=== PATIENT | female | born 1995 | race Caucasian/White ===

== ENCOUNTER 2017-03-16 11:23 | Emergency (ER) | payer MEDICAID ==
[2017-03-16 11:43] VITALS: BP 121/66
--- NOTE | 2017-03-16 12:23 | EDM.PDOC ---
ED HPI GENERAL MEDICAL PROBLEM - General Chief Complaint: Back Pain or Injury Stated Complaint: BACK PAIN/13 WEEKS Time Seen by Provider: 03/16/17 11:44 Source of Information: Reports: Patient History Limitations: Reports: No Limitations - History of Present Illness INITIAL COMMENTS - FREE TEXT/NARRATIVE: Patient presents with complaints of low back pain after bending over at the waist. 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 History: at 13wks edc sep 19 - Past Surgical History HEENT Surgical History: Reports: Eye Surgery Social & Family History - Tobacco Use Smoking Status *Q: Current Every Day Smoker Years of Tobacco use: 4 Packs/Tins Daily: 0.2 ED ROS GENERAL - Review of Systems Review Of Systems: See Below Constitutional: Denies: Fever, Chills HEENT: Reports: No Symptoms Respiratory: Denies: Shortness of Breath, Wheezing, Cough Cardiovascular: Denies: Chest Pain, Dyspnea on Exertion, Edema, Lightheadedness , Palpitations, PND, Syncope Endocrine: Reports: No Symptoms GI/Abdominal: Denies: Abdominal Pain, Black Stool, Bloody Stool, Constipation, Diarrhea, Hematemesis, Hematochezia, Mucous in Stool, Nausea, Vomiting : Denies: Discharge, Dysuria, Flank Pain, Incontinence, Pain, Urgency Musculoskeletal: Reports: Muscle Pain, Other (Low back pain) Skin: Denies: Cyanosis, Bruising, Rash, Erythema, Lesions Neurological: Denies: Headache, Numbness, Syncope, Tingling, Difficulty Walking , Weakness, Gait Disturbance Psychiatric: Reports: No Symptoms ED EXAM,LOWER BACK PAIN/INJURY - Physical Exam Exam: See Below Exam Limited By: No Limitations General Appearance: Alert, WD/WN, No Apparent Distress Eye Exam: Bilateral Eye: Normal Inspection, PERRL Ears: Normal External Exam, Normal Canal, Hearing Grossly Normal, Normal TMs Nose: Normal Inspection, Normal Mucosa Throat/Mouth: Normal Inspection, Normal Lips, Normal Teeth, Normal Gums, Normal Oropharynx, Normal Voice, No Airway Compromise Head: Atraumatic, Normocephalic Neck: Normal Inspection, Supple, Non-Tender, Full Range of Motion Respiratory/Chest: No Respiratory Distress, Lungs Clear, Normal Breath Sounds, No Accessory Muscle Use, Chest Non-Tender Cardiovascular: Normal Peripheral Pulses, Regular Rate, Rhythm, No Edema, No Gallop, No Murmur, No Rub GI/Abdominal: Normal Bowel Sounds, Soft, Non-Tender, No Organomegaly, No Abnormal Bruit, Other (13 weeks ) Back Exam: Normal Inspection, Full Range of Motion, Muscle Spasm, Other ( Negative leg raise bilateral legs, no radiculopathy noted. ). No: CVA Tenderness (R), CVA Tenderness (L), Decreased Range of Motion, Paraspinal Tenderness, Vertebral Tenderness Extremities: Normal Inspection, Normal Range of Motion, Non-Tender, No Pedal Edema, Normal Capillary Refill Neurological: Alert, Normal Mood/Affect, Normal Dorsiflexion, CN II-XII Intact, Normal Plantar Flexion, Normal Gait, No Motor/Sensory Deficits, Oriented x 3 Psychiatric: Normal Affect, Normal Mood Skin Exam: Warm, Dry, Intact, Normal Color, No Rash Lymphatic: No Adenopathy Course - Vital Signs Last Recorded V/S: Last Vital Signs Temp 36.1 C 03/16/17 11:41 Pulse 76 03/16/17 11:41 Resp 14 03/16/17 11:41 BP 121/66 03/16/17 11:41 Pulse Ox 96 03/16/17 11:41 Departure - Departure Time of Disposition: 12:23 Disposition: Home, Self-Care 01 Condition: good Clinical Impression: Low back strain - Discharge Information Instructions: Back Pain, Adult, [id number], Muscle Strain, [id number] Referrals: PCP,None [Primary Care Provider] - Forms: ED Department Discharge Additional Instructions: You have a low back muscle strain. When bending over, bend at the knees and use your legs for support. You may use hot packs and Ice packs as directed for pain. Use of lidocaine patch can also assist with your pain, use as directed. You can take acetaminophen for pain as directed. Use of chiropractor or massage may also help your discomfort. Follow up with your OB as scheduled in a few weeks. If you discomfort becomes worse, follow up. - Assessment/Plan Assessment:: Low back strain Plan: Monitor and manage pain. Patient provided education on proper body mechanics, use of hot packs and Ice packs, lidocaine patch and acetaminophen for pain as directed. Use of chiropractor or massage may also help her discomfort. Follow up with your OB as scheduled in a few weeks.
== END 2017-03-16 12:33 | disposition home or self-care (01) ==
LOC: JP.ED 11:23
DX: O9A.211 Injury, poisoning and certain other consequences of external causes complicating pregnancy, first trimester (principal); S39.012A Strain of muscle, fascia and tendon of lower back, initial encounter; O99.331 Smoking (tobacco) complicating pregnancy, first trimester; F17.210 Nicotine dependence, cigarettes, uncomplicated; Z3A.13 13 weeks gestation of pregnancy; Z98.890 Other specified postprocedural states; X58.XXXA Exposure to other specified factors, initial encounter
CPT/HCPCS: 99283

== ENCOUNTER 2017-09-26 07:16 | Inpatient (IN) | payer MEDICAID ==
[2017-09-26] MEDS ORDERED: Misoprostol 50 MCG (1/2 of 100 MCG) Tab VAG ONE ×2 (08:20→12:40)
[2017-09-26] MEDS ORDERED: Misoprostol 50 MCG (1/2 of 100 MCG) Tab ONE (08:26)
[2017-09-26] MEDS ORDERED: Sodium Chloride 0.9% 10 ML Syringe FLUSH PRN (08:33)
[2017-09-26] MEDS ORDERED: Ondansetron 4 MG Tab.DIS PO PRN (08:36)
--- NOTE | 2017-09-26 08:45 | PCM.LDHP ---
L&D History of Present Illness - General Date of Service: 09/26/17 (induction post dates) Admit Problem/Dx: Patient Status Order with Admit Dx/Problem 09/26/17 08:33 Patient Status [ADT] Routine Admission Diagnosis/Problem Admission Diagnosis/Problem Source of Information: Patient History Limitations: Reports: No Limitations - History of Present Illness Introduction:: This 21 year old who is 41 weeks gestation presents for induction of labor. CHELSEY was 09/19/17 based on early US. Adequate care. No problems during . Has been teo for the past several days at home. 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 LMP (Approximate): (CHELSEY 09/19/17) Other OB/BYN History: at 13wks edc sep 19 - Past Surgical History HEENT Surgical History: Reports: Eye Surgery Social & Family History - Family History Family Medical History: Noncontributory - Tobacco Use Smoking Status *Q: Current Every Day Smoker Years of Tobacco use: 6 Packs/Tins Daily: 0.3 Used Tobacco, but Quit: No Second Hand Smoke Exposure: No - Caffeine Use Caffeine Use: Reports: Coffee, Soda Other Caffeine Use: occational - Recreational Drug Use Recreational Drug Use: Yes Drug Use in Last 12 Months: Yes Recreational Drug Type: Reports: Marijuana/Hashish Recreational Drug Use Frequency: Daily H&P Review of Systems - Review of Systems: Review Of Systems: See Below General: Reports: No Symptoms HEENT: Reports: No Symptoms Pulmonary: Reports: No Symptoms Cardiovascular: Reports: No Symptoms Gastrointestinal: Reports: No Symptoms Genitourinary: Reports: No Symptoms Musculoskeletal: Reports: No Symptoms Skin: Reports: No Symptoms Psychiatric: Reports: No Symptoms Neurological: Reports: No Symptoms Hematologic/Lymphatic: Reports: No Symptoms Immunologic: Reports: No Symptoms L&D Exam - Exam Exam: See Below - Vital Signs Weight: 209 lb - OB Specific Contraction Intensity: Mild Movement: Active Heart Tones: Present Heart Tones per Min: 145 Heart Rate (FHR) Variability: Moderate (6-25 bmp) Presentation: Vertex Estimated Weight: 8-9 pounds - Hung Score Hung Score Cervix Position: Anterior Hung Score Consistency: Soft Hung Score Effacement: 51-70% Hung Score Dilation: 1-2 cm Hung Score Infant's Station: -1 ,0 Hung Score Total: 9 - Exam General: Alert, Oriented HEENT: PERRLA, Conjunctiva Clear, EACs Clear, EOMI, Hearing Intact, Mucosa Moist & [place], Nares Patent, Normal Nasal Septum, Posterior Pharynx Clear, TMs Clear Neck: Supple, Trachea Midline Lungs: Clear to Auscultation, Normal Respiratory Effort Cardiovascular: Regular Rate, Regular Rhythm GI/Abdominal Exam: Normal Bowel Sounds, Soft, Non-Tender, No Organomegaly, No Distention, No Abnormal Bruit, No Mass, Pelvis Stable Rectal Exam: Normal Exam, Normal Rectal Tone Genitourinary: Normal external exam, Normal bimanual exam, Normal speculum exam Back Exam: Normal Inspection, Full Range of Motion Extremities: Normal Inspection, Normal Range of Motion, Non-Tender, No Pedal Edema, Normal Capillary Refill Skin: Warm, Dry, Intact Neurological: Cranial Nerves Intact, Reflexes Equal Bilateral Psychiatric: Alert, Normal Affect, Normal Mood - Patient Data Lab Results Last 24 hrs: Laboratory Results - last 24 hr 09/26/17 09/26/17 Range/Units 08:03 08:05 Urine Color Yellow Urine Appearance Cloudy Urine pH 7.0 (4.5-8.0) Ur Specific [place] 1.015 (1.008-1.030) Urine Protein Negative (NEGATIVE) mg/dL Urine Glucose (UA) 250 H (NEGATIVE) mg/dL Urine Ketones Negative (NEGATIVE) mg/dL Urine Occult Blood Negative (NEGATIVE) Urine Nitrite Negative (NEGATIVE) Urine Bilirubin Negative (NEGATIVE) Urine Urobilinogen Normal (NORMAL) mg/dL Ur Leukocyte Esterase Negative (NEGATIVE) Urine RBC Not seen (0-5) Urine WBC Not seen (0-5) Ur Epithelial Cells Moderate Amorphous Sediment Many Urine Bacteria Moderate Urine Mucus Not seen Urine Opiates Screen Negative (NEGATIVE) Ur Oxycodone Screen Negative (NEGATIVE) Urine Methadone Screen Negative (NEGATIVE) Ur Propoxyphene Screen Negative (NEGATIVE) Ur Barbiturates Screen Negative (NEGATIVE) Ur Tricyclics Screen Negative (NEGATIVE) Ur Phencyclidine Scrn Negative (NEGATIVE) Ur Amphetamine Screen Negative (NEGATIVE) U Methamphetamines Scrn Negative (NEGATIVE) Urine MDMA Screen Negative (NEGATIVE) U Benzodiazepines Scrn Negative (NEGATIVE) U Cocaine Metab Screen Negative (NEGATIVE) U Marijuana (THC) Screen Negative (NEGATIVE) - Problem List (1) Post-dates SNOMED Code(s): 44913218 ICD Code: O48.0 - POST-TERM Status: Acute Current Visit: Yes (2) Elective induction of labor planned SNOMED Code(s): 772748586 ICD Code: OYC5221 - Status: Acute Current Visit: Yes Problem List Initiated/Reviewed/Updated: Yes Orders Last 24hrs: Active Orders 24 hr Category Date Time Status Patient Status [ADT] Routine ADT 09/26/17 08:33 Ordered Antiembolic Devices [RC] .Routine Care 09/26/17 08:38 Ordered Communication Order [RC] ASDIRECTED Care 09/26/17 08:33 Ordered Communication Order [RC] ASDIRECTED Care 09/26/17 08:36 Ordered Heart Tones [RC] PER UNIT ROUTINE Care 09/26/17 08:33 Ordered May Shower [RC] ASDIRECTED Care 09/26/17 08:33 Ordered Notify Provider Vital Signs [RC] PRN Care 09/26/17 08:33 Ordered Notify Provider [RC] PRN Care 09/26/17 08:33 Ordered Up ad Keysha [RC] ASDIRECTED Care 09/26/17 08:33 Ordered VTE/DVT Education [RC] Click to Edit Care 09/26/17 08:38 Ordered Vital Signs [RC] PER UNIT ROUTINE Care 09/26/17 08:33 Ordered Regular Diet [DIET] Diet 09/26/17 Lunch Ordered CBC WITH AUTO DIFF [HEME] Routine Lab 09/26/17 08:03 Ordered Acetaminophen [Tylenol] Med 09/26/17 08:36 Ordered 650 mg PO Q4H PRN Ondansetron [Zofran ODT] Med 09/26/17 08:36 Ordered 4 mg PO Q4H PRN Oxytocin/Normal Saline [Pitocin in NS 20 Units/1,000 ML Med 09/26/17 08:45 Ordered ] 1,000 ml IV TITRATE Penicillin G Potassium [Pfizerpen] 2.5 millunits Med 09/26/17 08:45 Ordered Sodium Chloride 0.9% [Normal Saline] 50 ml IV Q4H Penicillin G Potassium [Pfizerpen] 5 millunits Med 09/26/17 08:39 Ordered Sodium Chloride 0.9% [Normal Saline] 100 ml IV ONETIME Sodium Chloride 0.9% [Saline Flush] Med 09/26/17 08:33 Ordered 10 ml FLUSH ASDIRECTED PRN fentaNYL [Sublimaze] Med 09/26/17 08:36 Ordered 100 mcg IVPUSH Q1H PRN DVT/VTE Prophylaxis Reflex [OM.PC] Routine Oth 09/26/17 08:36 Ordered Saline Lock Insert [OM.PC] Routine Oth 09/26/17 08:33 Ordered Resuscitation Status Routine Resus Stat 09/26/17 08:33 Ordered Medication Orders Acetaminophen (Tylenol) 650 mg PO Q4H PRN PRN Reason: Pain (Mild 1-3) and fever Fentanyl (Sublimaze) 100 mcg IVPUSH Q1H PRN PRN Reason: Pain (moderate 4-6) Oxytocin/Sodium Chloride (Pitocin In Ns 20 Units/1,000 Ml) 1,000 mls @ 6 mls/ hr IV TITRATE MAICOL; 2 MUNITS/MIN PRN Reason: Protocol Penicillin G Potassium 5 (millunits/ Sodium Chloride) 100 mls @ 200 mls/hr IV ONETIME ONE Stop: 09/26/17 09:08 Penicillin G Potassium 2.5 (millunits/ Sodium Chloride) 50 mls @ 100 mls/hr IV Q4H MAICOL Ondansetron HCl (Zofran Odt) 4 mg PO Q4H PRN PRN Reason: Nausea/Vomiting Sodium Chloride (Saline Flush) 10 ml FLUSH ASDIRECTED PRN PRN Reason: Keep Vein Open Assessment/Plan Comment:: 21 year old 41 weeks gestation, post dates here for induction of labor. Hung score 9, CE 2/75/0 anterior Positive GBS Plan: Misoprostol 50 mcg this morning, may repeat at noon Monitor for active labor GBS protocol started Plan for vaginal delivery later today.
[2017-09-26] MEDS ORDERED: Penicillin G Potassium 5 MILLUNITS in Sodium Chloride 0.9% 100 ML IV ONE (09:00)
[2017-09-26] MEDS ORDERED: Misoprostol 25 MCG (1/4 of 100 MCG) Tab ONE (12:28)
--- NOTE | 2017-09-26 12:36 | PCM.PNLD ---
Labor Progress Note - VS & Meds Vital Signs: Last Vital Signs Temp 97.4 F 09/26/17 08:00 Pulse 120 H 09/26/17 08:00 Resp 18 09/26/17 08:00 BP 119/81 09/26/17 08:00 Pulse Ox 95 09/26/17 08:00 Active Medications: Current Medications Acetaminophen (Tylenol) 650 mg PO Q4H PRN PRN Reason: Pain (Mild 1-3) and fever Fentanyl (Sublimaze) 100 mcg IVPUSH Q1H PRN PRN Reason: Pain (moderate 4-6) Oxytocin/Sodium Chloride (Pitocin In Ns 20 Units/1,000 Ml) 20 unit in 1,000 mls @ 6 mls/hr IV TITRATE MAICOL; 2 MUNITS/MIN PRN Reason: Protocol Penicillin G Potassium 2.5 (millunits/ Sodium Chloride) 50 mls @ 100 mls/hr IV Q4H MAICOL Misoprostol (Cytotec) 25 mcg VAG ONETIME ONE Stop: 09/26/17 12:32 Ondansetron HCl (Zofran Odt) 4 mg PO Q4H PRN PRN Reason: Nausea/Vomiting Sodium Chloride (Saline Flush) 10 ml FLUSH ASDIRECTED PRN PRN Reason: Keep Vein Open Discontinued Medications Penicillin G Potassium 5 (millunits/ Sodium Chloride) 100 mls @ 200 mls/hr IV ONETIME ONE Stop: 09/26/17 09:29 Last Admin: 09/26/17 09:14 Dose: 200 mls/hr Misoprostol (Cytotec) Confirm Administered Dose 50 mcg .ROUTE .STK-MED ONE Stop: 09/26/17 08:27 Last Admin: 09/26/17 09:14 Dose: Not Given Misoprostol (Cytotec) 50 mcg VAG ONETIME ONE Stop: 09/26/17 08:21 Last Admin: 09/26/17 08:23 Dose: 50 mcg Misoprostol (Cytotec) Confirm Administered Dose 25 mcg .ROUTE .STK-MED ONE Stop: 09/26/17 12:29 - Uterine Contractions Uterine Monitoring Mode: External [place] Contraction Frequency (min): 1.5-5 Contraction Duration (sec): 50-60 Contraction Intensity: Mild Uterine Resting Tone: Soft - Monitoring Monitor Mode: Doppler/Auscultation Heart Rate (FHR) Baseline: 137 Heart Rate (FHR) Variability: Moderate (6-25 bmp) Accelerations: Present, 15x15 Decelerations: None Strip Review: Category I - Vaginal Exam Dilation (cm): 2 Effacement (Percent): 90 Station: 0 Cervical Position: Anterior Sterile Vaginal Exam Performed By: Shanna Warren Vaginal Exam Comment: cervical change from this morning, - Labor Progress (Free Text) Labor Progress: 09/26/17 Placed second dose of Misoprostol 25 mcg at 1230. Tacho regularly now and becoming uncomfortable Monitor for active labor will reassess at 1530, May AROM if not ruptured on her own. Planning for vaginal delivery Cat 1 strip
[2017-09-26] MEDS: Penicillin G Potassium 2.5 MILLUNITS in Sodium Chloride 0.9% 50 ML IV SCH ×3 (13:13→21:55)
[2017-09-26] MEDS: fentaNYL 100 MCG/2 ML SDV IVPUSH PRN ×2 (15:06→16:53)
[2017-09-26] MEDS ORDERED: Sodium Chloride 0.9% 1,000 ML IV ONE (16:10)
[2017-09-26] MEDS ORDERED: ePHEDrine 50 MG/ML SDV IVPUSH ONE (16:15)
[2017-09-26] MEDS ORDERED: ePHEDrine 50 MG/ML SDV ONE (16:18)
[2017-09-26] MEDS ORDERED: Ropivacaine 100 ML ONE (18:12)
--- NOTE | 2017-09-26 18:17 | PCM.PNLD ---
Labor Progress Note - VS & Meds Vital Signs: Last Vital Signs Temp 97.4 F 09/26/17 11:00 Pulse 97 09/26/17 11:00 Resp 18 09/26/17 11:00 BP 116/67 09/26/17 11:00 Pulse Ox 95 09/26/17 11:00 Active Medications: Current Medications Acetaminophen (Tylenol) 650 mg PO Q4H PRN PRN Reason: Pain (Mild 1-3) and fever Fentanyl (Sublimaze) 100 mcg IVPUSH Q1H PRN PRN Reason: Pain (moderate 4-6) Last Admin: 09/26/17 16:53 Dose: 100 mcg Oxytocin/Sodium Chloride (Pitocin In Ns 20 Units/1,000 Ml) 20 unit in 1,000 mls @ 6 mls/hr IV TITRATE MAICOL; 2 MUNITS/MIN PRN Reason: Protocol Penicillin G Potassium 2.5 (millunits/ Sodium Chloride) 50 mls @ 100 mls/hr IV Q4H MAICOL Last Admin: 09/26/17 16:57 Dose: 100 mls/hr Ondansetron HCl (Zofran Odt) 4 mg PO Q4H PRN PRN Reason: Nausea/Vomiting Sodium Chloride (Saline Flush) 10 ml FLUSH ASDIRECTED PRN PRN Reason: Keep Vein Open Discontinued Medications Ephedrine Sulfate (Ephedrine Sulfate) 5 - 10 mg IVPUSH ONETIME ONE Stop: 09/26/17 16:16 Ephedrine Sulfate (Ephedrine Sulfate) Confirm Administered Dose 50 mg .ROUTE .STK-MED ONE Stop: 09/26/17 16:19 Penicillin G Potassium 5 (millunits/ Sodium Chloride) 100 mls @ 200 mls/hr IV ONETIME ONE Stop: 09/26/17 09:29 Last Admin: 09/26/17 09:14 Dose: 200 mls/hr Misoprostol (Cytotec) Confirm Administered Dose 50 mcg .ROUTE .STK-MED ONE Stop: 09/26/17 08:27 Last Admin: 09/26/17 09:14 Dose: Not Given Misoprostol (Cytotec) 50 mcg VAG ONETIME ONE Stop: 09/26/17 08:21 Last Admin: 09/26/17 08:23 Dose: 50 mcg Misoprostol (Cytotec) Confirm Administered Dose 25 mcg .ROUTE .STK-MED ONE Stop: 09/26/17 12:29 Last Admin: 09/26/17 12:33 Dose: Not Given Misoprostol (Cytotec) 25 mcg VAG ONETIME ONE Stop: 09/26/17 12:41 Last Admin: 09/26/17 12:34 Dose: 25 mcg - Uterine Contractions Uterine Monitoring Mode: External [place] Contraction Frequency (min): 1-3 Contraction Duration (sec): 30-100 Contraction Intensity: Strong Uterine Resting Tone: Soft - Monitoring Monitor Mode: Doppler/Auscultation Heart Rate (FHR) Baseline: 137 Heart Rate (FHR) Variability: Moderate (6-25 bmp) Accelerations: Present, 15x15 Decelerations: None Strip Review: Category I - Vaginal Exam Dilation (cm): 3-4 Effacement (Percent): 100 Station: 0 Cervical Position: Anterior Sterile Vaginal Exam Performed By: Shanna Warren Vaginal Exam Comment: SROM 1609, clear - Labor Progress (Free Text) Labor Progress: severe back labor, requested epidural. There was a significant delay in getting anesthesia.Now is comfortable Plan for vaginal delivery this evening
[2017-09-26] MEDS ORDERED: Lidocaine 1% 50 ML MDV ONE (21:45)
[2017-09-26] MEDS: Ibuprofen 600 MG Tab PO PRN (22:35)
[2017-09-26] MEDS ORDERED: Sennosides 8.6 MG Tab PO PRN (22:54)
[2017-09-26] MEDS ORDERED: Benzocaine 20% Top Spray 56 GM Bottle TOP PRN (22:54)
[2017-09-26] MEDS ORDERED: Lanolin 100% Cream 40 GM Tube TOP PRN (22:54)
[2017-09-26] MEDS ORDERED: Witch Hazel Medicated Pads 100/Jar TOP PRN (22:54)
--- NOTE | 2017-09-26 23:24 | PCM.DEL ---
L & D Note - General Info Date of Service: 09/26/17 (Delivery) Mother's Due Date: 09/19/17 - Delivery Note Labor: Spontaneous Cervical Ripening Method: Misoprostil Delivery Outcome: Livebirth Infant Delivery Method: Spontaneous Vaginal Delivery-Single Delivery Mode: Spontaneous Presentation: Vertex Nuchal Cord: None Anesthesia Type: Epidural Amniotic Fluid Description: Clear Episiotomy Type: None Laceration: 2nd Degree, Perineal Suture type: Vicryl Suture size: 3-0 Placenta: Intact, Spontaneous Cord: 3 Vessels Estimated Blood Loss: 300 Resuscitation Needed: No : Bulb Syringe, Stimulated, Warmed, [place] Used Provider: Shanna Warren Score 1 min: 8 Score 5 min: 9 Score 10 min: 9 Second Stage Interventions: Reports: Second Nurse Reviewed Heart Tones, Pushing Effectively, Pushing, Feet in Foot Rests, Pushing, Knee Chest Position, Pushing, McRobert's Position, Pushing, Squat Bar Pulling on Sheet Delivery Comments (Free Text/Narrative):: 09/26/17 This 21 year old G 2 now P1 who is 41 weeks gestation delivered a via a viable female at 2205 in SAMEERA position. The mother pushed for 2 hours making slow progress. The vacuum was used after 1 1/2 to help bring the baby to the perineum. Then she was able to push her out. The OR crew had been call when the vacuum was applied. With delivery of the mother was in Pedro position and shoulder dystocia was reduced with supra pubic pressure. The had terminal meconium at delivery. The was bulb suctioned on mother's abdomen, she cried spontaneously. Apgars of 8,9,9, off for color. Three vessel cord. Weight 7lbs 11 oz Placenta was expressed spontaneously intact, active management of the third stage was used. There was a perineal tear, 2nd degree. Which was repaired with 3-0 vicryl in standard fashion. EBL:300 cc Mother and to post and nursery in stable condition. Induction Criteria - Hung Score Hung Score Dilation: 1-2 cm Hung Score Effacement: 60-70% Hung Score 's Station: -1 ,0 Hung Score Consistency: Soft Hung Score Cervix Position: Anterior Hung Score Total: 9 Hung Score Presenting Part: Reports: Cephalic - Induction Gestational Age >/= 39 wks: Yes Estimated Pelvis: Reports: Adequate Reassuring Monitoring Strip: Yes Absence of Tachy Systole: Yes Vacuum Extractor Progress Note - Alternative Labor Strategies Considered Alternative Labor Strategies Considered:: Reports: Yes Strategies Considered:: Reports: Contraction Intensity Adequate, Position Changes Used to Facilitate Rotation & Descent, Empty Bladder, Rest Indications Considered:: Reports: Yes Indications:: Reports: Shortening of 2nd Stage for Maternal Benefit Time Out:: Reports: Yes - Patient Prepared Patient Prepared:: Reports: Yes Informed Consent:: Reports: Verbal Risks: Reports: Yes Risks Include:: Reports: Laceration, Shoulder Dystocia, Maternal Injury, Other Anesthesia/Analgesia Adequate:: Reports: Yes - Probability of Success High Probability of Success:: Reports: Yes Weight Estimated:: Reports: AGA Patient Diabetic:: Reports: No Pelvis Adequate:: Reports: Yes Asynclitic:: Reports: No - Application Time Maximum Application Time & Number of Pop-Offs Predetermined:: Reports: Yes Number of Times Cup Disengaged:: 2 Type of Vacuum Used:: Reports: Cup: Mushroom type Vacuum Extraction: Successful - Exit Strategy Exit strategy available:: Reports: Yes and resuscitation teams readily available:: Reports: Yes - General Info Date of Service: 09/26/17 Admission Dx/Problem (Free Text): Patient Status Order with Admit Dx/Problem 09/26/17 08:33 Patient Status [ADT] Routine Admission Diagnosis/Problem Admission Diagnosis/Problem Functional Status: Reports: Pain Controlled - Review of Systems General: Reports: No Symptoms HEENT: Reports: No Symptoms Pulmonary: Reports: No Symptoms Cardiovascular: Reports: No Symptoms Gastrointestinal: Reports: No Symptoms Genitourinary: Reports: No Symptoms Musculoskeletal: Reports: No Symptoms Skin: Reports: No Symptoms Neurological: Reports: No Symptoms Psychiatric: Reports: No Symptoms - Patient Data Vitals - Most Recent: Last Vital Signs Temp 97.4 F 09/26/17 11:00 Pulse 89 09/26/17 18:56 Resp 18 09/26/17 17:56 BP 98/50 L 09/26/17 18:56 Pulse Ox 97 09/26/17 18:56 Weight - Most Recent: 209 lb 0.007 oz I&O - Last 24 Hours: Intake & Output 09/26/17 09/26/17 09/27/17 14:59 22:59 06:59 Intake Total 1390 Balance 1390 Lab Results Last 24 Hours: Laboratory Results - last 24 hr 09/26/17 09/26/17 09/26/17 Range/Units 08:03 08:03 08:05 WBC 17.8 H (4.5-11.0) K/uL RBC 3.82 (3.30-5.50) M/uL Hgb 11.4 L (12.0-15.0) g/dL Hct 34.5 L (36.0-48.0) % MCV 90 (80-98) fL MCH 30 (27-31) pg MCHC 33 (32-36) % Plt Count 321 (150-400) K/uL Add Manual Diff Yes Neutrophils % (Manual) 73 H (36-66) % Band Neutrophils % 1 L (5-11) % Lymphocytes % (Manual) 14 L (24-44) % Monocytes % (Manual) 12 H (2-6) % Urine Color Yellow Urine Appearance Cloudy Urine pH 7.0 (4.5-8.0) Ur Specific [place] 1.015 (1.008-1.030) Urine Protein Negative (NEGATIVE) mg/dL Urine Glucose (UA) 250 H (NEGATIVE) mg/dL Urine Ketones Negative (NEGATIVE) mg/dL Urine Occult Blood Negative (NEGATIVE) Urine Nitrite Negative (NEGATIVE) Urine Bilirubin Negative (NEGATIVE) Urine Urobilinogen Normal (NORMAL) mg/dL Ur Leukocyte Esterase Negative (NEGATIVE) Urine RBC Not seen (0-5) Urine WBC Not seen (0-5) Ur Epithelial Cells Moderate Amorphous Sediment Many Urine Bacteria Moderate Urine Mucus Not seen Urine Opiates Screen Negative (NEGATIVE) Ur Oxycodone Screen Negative (NEGATIVE) Urine Methadone Screen Negative (NEGATIVE) Ur Propoxyphene Screen Negative (NEGATIVE) Ur Barbiturates Screen Negative (NEGATIVE) Ur Tricyclics Screen Negative (NEGATIVE) Ur Phencyclidine Scrn Negative (NEGATIVE) Ur Amphetamine Screen Negative (NEGATIVE) U Methamphetamines Scrn Negative (NEGATIVE) Urine MDMA Screen Negative (NEGATIVE) U Benzodiazepines Scrn Negative (NEGATIVE) U Cocaine Metab Screen Negative (NEGATIVE) U Marijuana (THC) Screen Negative (NEGATIVE) Med Orders - Current: Current Medications Acetaminophen (Tylenol) 650 mg PO Q4H PRN PRN Reason: Pain (Mild 1-3) and fever Fentanyl (Sublimaze) 100 mcg IVPUSH Q1H PRN PRN Reason: Pain (moderate 4-6) Last Admin: 09/26/17 16:53 Dose: 100 mcg Oxytocin/Sodium Chloride (Pitocin In Ns 20 Units/1,000 Ml) 20 unit in 1,000 mls @ 6 mls/hr IV TITRATE MAICOL; 2 MUNITS/MIN PRN Reason: Protocol Penicillin G Potassium 2.5 (millunits/ Sodium Chloride) 50 mls @ 100 mls/hr IV Q4H MAICOL Last Admin: 09/26/17 21:55 Dose: 100 mls/hr Ibuprofen (Motrin) 600 mg PO Q6H PRN PRN Reason: Pain Ondansetron HCl (Zofran Odt) 4 mg PO Q4H PRN PRN Reason: Nausea/Vomiting Sodium Chloride (Saline Flush) 10 ml FLUSH ASDIRECTED PRN PRN Reason: Keep Vein Open Discontinued Medications Ephedrine Sulfate (Ephedrine Sulfate) 5 - 10 mg IVPUSH ONETIME ONE Stop: 09/26/17 16:16 Ephedrine Sulfate (Ephedrine Sulfate) Confirm Administered Dose 50 mg .ROUTE .STK-MED ONE Stop: 09/26/17 16:19 Last Admin: 09/26/17 18:27 Dose: Not Given Penicillin G Potassium 5 (millunits/ Sodium Chloride) 100 mls @ 200 mls/hr IV ONETIME ONE Stop: 09/26/17 09:29 Last Admin: 09/26/17 09:14 Dose: 200 mls/hr Ropivacaine (Naropin 0.2%) Confirm Administered Dose 100 mls @ as directed .ROUTE .STK-MED ONE Stop: 09/26/17 18:13 Sodium Chloride (Normal Saline) 1,000 mls @ 999 mls/hr IV .BOLUS ONE Stop: 09/26/17 17:10 Last Admin: 09/26/17 16:12 Dose: 999 mls/hr Lidocaine HCl (Xylocaine 1%) Confirm Administered Dose 50 ml .ROUTE .STK-MED ONE Stop: 09/26/17 21:46 Misoprostol (Cytotec) Confirm Administered Dose 50 mcg .ROUTE .STK-MED ONE Stop: 09/26/17 08:27 Last Admin: 09/26/17 09:14 Dose: Not Given Misoprostol (Cytotec) 50 mcg VAG ONETIME ONE Stop: 09/26/17 08:21 Last Admin: 09/26/17 08:23 Dose: 50 mcg Misoprostol (Cytotec) Confirm Administered Dose 25 mcg .ROUTE .STK-MED ONE Stop: 09/26/17 12:29 Last Admin: 09/26/17 12:33 Dose: Not Given Misoprostol (Cytotec) 25 mcg VAG ONETIME ONE Stop: 09/26/17 12:41 Last Admin: 09/26/17 12:34 Dose: 25 mcg - Exam General: Alert, Oriented HEENT: Pupils Equal, Pupils Reactive, EOMI, Mucous Membr. Moist/[place] Neck: Supple Lungs: Clear to Auscultation, Normal Respiratory Effort Cardiovascular: Regular Rate, Regular Rhythm GI/Abdominal Exam: Normal Bowel Sounds, Soft, Non-Tender, No Organomegaly, No Distention, No Abnormal Bruit, No Mass, Pelvis Stable (Female) Exam: Normal External Exam, Normal Speculum Exam, Normal Bimanual Exam, Cervical Dilatation, Enlarged Uterus, Heart Tones, Vaginal Bleeding Back Exam: Normal Inspection, Full Range of Motion Extremities: Normal Inspection, Normal Range of Motion, Non-Tender, No Pedal Edema, Normal Capillary Refill Skin: Warm, Dry, Intact Wound/Incisions: Healing Well Neurological: No New Focal Deficit Psy/Mental Status: Alert, Normal Affect, Normal Mood - Problem List & Annotations (1) Post-dates SNOMED Code(s): 21894166 Code(s): O48.0 - POST-TERM Status: Acute Current Visit: Yes (2) Elective induction of labor planned SNOMED Code(s): 859552184 Code(s): QTW2363 - Status: Acute Current Visit: Yes (3) () SNOMED Code(s): 295312164 Code(s): Z78.9 - OTHER SPECIFIED HEALTH STATUS Status: Acute Current Visit: Yes (4) Normal labor and delivery SNOMED Code(s): 58934071 Code(s): O80 - ENCOUNTER FOR FULL-TERM UNCOMPLICATED DELIVERY Status: Acute Current Visit: Yes - Problem List Review Problem List Initiated/Reviewed/Updated: Yes - My Orders Last 24 Hours: My Active Orders 09/26/17 08:33 Communication Order [RC] ASDIRECTED May Shower [RC] ASDIRECTED Notify Provider Vital Signs [RC] PRN Notify Provider [RC] PRN Up ad Keysha [RC] ASDIRECTED Vital Signs [RC] PER UNIT ROUTINE Sodium Chloride 0.9% [Saline Flush] 10 ml FLUSH ASDIRECTED PRN Saline Lock Insert [OM.PC] Routine 09/26/17 08:36 Acetaminophen [Tylenol] 650 mg PO Q4H PRN Ondansetron [Zofran ODT] 4 mg PO Q4H PRN fentaNYL [Sublimaze] 100 mcg IVPUSH Q1H PRN DVT/VTE Prophylaxis Reflex [OM.PC] Routine 09/26/17 08:38 VTE/DVT Education [RC] Click to Edit 09/26/17 08:45 Oxytocin/Normal Saline [Pitocin in NS 20 Units/1,000 ML] 20 unit in 1,000 ml IV TITRATE 09/26/17 13:00 Penicillin G Potassium [Pfizerpen] 2.5 millunits Sodium Chloride 0.9% [Normal Saline] 50 ml IV Q4H 09/26/17 16:10 PCEA Epidural [RC] ASDIRECTED 09/26/17 18:00 Insert Sandhu Catheter [Insert Urinary Catheter] [OM.PC] Q24H 09/26/17 19:35 Urinary Catheter Assessment [RC] ASDIRECTED 09/26/17 22:35 Ibuprofen [Motrin] 600 mg PO Q6H PRN 09/26/17 22:54 Acetaminophen/Codeine [Tylenol with Codeine No.3 300MG/30MG] 1 tab PO Q4H PRN Benzocaine [[id number] 20% [place]] See Dose Instructions TOP Q4H PRN Docusate Sodium [Colace] 100 mg PO BID PRN Lanolin [Lansinoh HPA] 1 gm TOP ASDIRECTED PRN Sennosides [Senna] 1 mg PO BEDTIME PRN Witch Melissa [Tucks] 1 pad TOP ASDIRECTED PRN Assess Lochia [WOMSER] Per Unit Routine Assess Uterine Involution [WOMSER] Per Unit Routine Resuscitation Status Routine 09/26/17 22:55 Patient Status [ADT] Routine Vital Signs [RC] PFP 09/26/17 23:01 Ice Therapy [OM.PC] Per Unit Routine Perineal Care [OM.PC] Per Unit Routine Peripheral IV Discontinue [OM.PC] Routine Sitz Bath [OM.PC] Per Unit Routine 09/26/17 Lunch Regular Diet [DIET] 09/27/17 05:11 CBC WITH AUTO DIFF [HEME] AM - Assessment Assessment:: 21 year old G2 now P2 with complications, slow decent, vacuum assisted delivery, shoulder dystocia and 2nd degree laceration. breast feeding HGB 11.4, PLT 321 GBS treated, SROM clear at 1610 HIV negative UDS negative Rubella immune - Plan Plan:: 21 year old 41 weeks gestation, post dates here for induction of labor. Hung score 9, CE 2/75/0 anterior Positive GBS Plan: Misoprostol 50 mcg this morning, may repeat at noon Monitor for active labor GBS protocol started Plan for vaginal delivery later today. 09/26/17 Routine care 48 hour stay support HGB in am
--- NOTE | 2017-09-27 01:45 | ANES ---
DATE OF SERVICE: 09/26/2017 INDICATIONS: A 21-year-old lady in the Obstetrical Department, in active labor. I was asked by Shanna Warren CNM, to place a labor epidural. The procedure was explained to the patient in detail. Consent was signed. All questions were answered. DESCRIPTION OF PROCEDURE: She was placed in a sitting position. After a Betadine solution prep, the epidural was accomplished at what I believe is L5-S1 x1 with a good feel. No paresthesia. No CSF. No blood. Lidocaine 1% with epinephrine 1:200,000 5 mL was injected through the epidural needle. The epidural catheter was then passed to the four-christie with ease. Then, epidural needle was removed. The catheter was taped in place. She was diaphoretic. The tape was having a little bit of a difficult time sticking, but was reinforced. She was laid supine, then her head raised to approximately 15 degrees and was given a bolus of ropivacaine 0.2% 15 mL over approximately a minute and a half. She was then hooked up to a continuous infusion of ropivacaine 0.2% at 12 mL/h. After approximately 15 minutes, she was very comfortable, was not able to feel her contractions. Tolerated the procedure well. Alvin Torres CRNA /[id number]
[2017-09-27] MEDS: Penicillin G Potassium 2.5 MILLUNITS in Sodium Chloride 0.9% 50 ML IV SCH (02:08)
[2017-09-27] MEDS: Acetaminophen 325 MG Tab PO PRN ×3 (02:41→15:46)
[2017-09-27] MEDS: Acetaminophen/Codeine 300-30 MG Tab PO PRN ×2 (02:42→20:44)
[2017-09-27] MEDS: Ibuprofen 600 MG Tab PO PRN ×3 (04:44→17:01)
[2017-09-27] MEDS: Docusate Sodium 100 MG Cap PO PRN ×2 (09:59→20:44)
--- NOTE | 2017-09-27 11:15 | PCM.PNPP ---
- General Info Date of Service: 09/27/17 (PPD1) Admission Dx/Problem (Free Text): Patient Status Order with Admit Dx/Problem 09/26/17 08:33 Patient Status [ADT] Routine Admission Diagnosis/Problem Admission Diagnosis/Problem Functional Status: Reports: Pain Controlled - Review of Systems General: Reports: No Symptoms HEENT: Reports: No Symptoms Pulmonary: Reports: No Symptoms Cardiovascular: Reports: No Symptoms Gastrointestinal: Reports: No Symptoms Genitourinary: Reports: No Symptoms Musculoskeletal: Reports: No Symptoms Skin: Reports: No Symptoms Neurological: Reports: No Symptoms Psychiatric: Reports: No Symptoms - General Info Date of Service: 09/27/17 - Patient Data Vital Signs - Most Recent: Last Vital Signs Temp 98.2 F 09/27/17 09:50 Pulse 91 09/27/17 09:50 Resp 18 09/27/17 09:50 BP 103/57 L 09/27/17 09:50 Pulse Ox 96 09/27/17 09:50 Weight - Most Recent: 209 lb 0.007 oz I&O - Last 24 Hours: Intake & Output 09/26/17 09/27/17 09/27/17 22:59 06:59 14:59 Intake Total 50 1000 Output Total 100 Balance -50 1000 Lab Results - Last 24 Hours: Laboratory Results - last 24 hr 09/27/17 Range/Units 04:30 WBC 25.9 H (4.5-11.0) K/uL RBC 3.16 L (3.30-5.50) M/uL Hgb 9.4 L D (12.0-15.0) g/dL Hct 28.8 L (36.0-48.0) % MCV 91 (80-98) fL MCH 30 (27-31) pg MCHC 33 (32-36) % Plt Count 283 (150-400) K/uL Neut % (Auto) 77 H (36-66) % Lymph % (Auto) 10 L (24-44) % [place] % (Auto) 13 H (2-6) % Eos % (Auto) 0 L (2-4) % Baso % (Auto) 0 (0-1) % Med Orders - Current: Current Medications Acetaminophen (Tylenol) 650 mg PO Q4H PRN PRN Reason: Pain (Mild 1-3) and fever Last Admin: 09/27/17 09:58 Dose: 650 mg Acetaminophen/Codeine Phosphate (Tylenol With Codeine No.3 300mg/30mg) 1 tab PO Q4H PRN PRN Reason: Pain (moderate 4-6) Last Admin: 09/27/17 02:42 Dose: 1 tab Benzocaine ([id number]-[id number] 20% [place]) 0 gm TOP Q4H PRN PRN Reason: Perineal Comfort Measure Docusate Sodium (Colace) 100 mg PO BID PRN PRN Reason: Constipation Last Admin: 09/27/17 09:59 Dose: 100 mg Docusate Sodium (Colace) 100 mg PO DAILY MAICOL Emollient Ointment (Lansinoh Hpa) 0 gm TOP ASDIRECTED PRN PRN Reason: Sore Nipples Ferrous Sulfate (Ferrous Sulfate) 325 mg PO BIDMEALS MAICOL Oxytocin/Sodium Chloride (Pitocin In Ns 20 Units/1,000 Ml) 20 unit in 1,000 mls @ 6 mls/hr IV TITRATE MAICOL; 2 MUNITS/MIN PRN Reason: Protocol Last Titration: 09/26/17 22:35 Dose: 125 mls/hr Ibuprofen (Motrin) 600 mg PO Q6H PRN PRN Reason: Pain Last Admin: 09/27/17 11:02 Dose: 600 mg Ondansetron HCl (Zofran Odt) 4 mg PO Q4H PRN PRN Reason: Nausea/Vomiting Senna (Senna) 8.6 mg PO BEDTIME PRN PRN Reason: Constipation Sodium Chloride (Saline Flush) 10 ml FLUSH ASDIRECTED PRN PRN Reason: Keep Vein Open Witalexia Torres (Tucks) 1 pad TOP ASDIRECTED PRN PRN Reason: Hemorrhoids Last Admin: 09/27/17 11:03 Dose: 1 applic Discontinued Medications Ephedrine Sulfate (Ephedrine Sulfate) 5 - 10 mg IVPUSH ONETIME ONE Stop: 09/26/17 16:16 Last Admin: 09/27/17 02:07 Dose: Not Given Ephedrine Sulfate (Ephedrine Sulfate) Confirm Administered Dose 50 mg .ROUTE .STK-MED ONE Stop: 09/26/17 16:19 Last Admin: 09/26/17 18:27 Dose: Not Given Fentanyl (Sublimaze) 100 mcg IVPUSH Q1H PRN PRN Reason: Pain (moderate 4-6) Last Admin: 09/26/17 16:53 Dose: 100 mcg Penicillin G Potassium 5 (millunits/ Sodium Chloride) 100 mls @ 200 mls/hr IV ONETIME ONE Stop: 09/26/17 09:29 Last Admin: 09/26/17 09:14 Dose: 200 mls/hr Penicillin G Potassium 2.5 (millunits/ Sodium Chloride) 50 mls @ 100 mls/hr IV Q4H MAICOL Last Admin: 09/27/17 02:08 Dose: Not Given Ropivacaine (Naropin 0.2%) Confirm Administered Dose 100 mls @ as directed .ROUTE .STK-MED ONE Stop: 09/26/17 18:13 Sodium Chloride (Normal Saline) 1,000 mls @ 999 mls/hr IV .BOLUS ONE Stop: 09/26/17 17:10 Last Admin: 09/26/17 16:12 Dose: 999 mls/hr Lidocaine HCl (Xylocaine 1%) Confirm Administered Dose 50 ml .ROUTE .STK-MED ONE Stop: 09/26/17 21:46 Last Admin: 09/27/17 02:08 Dose: Not Given Misoprostol (Cytotec) Confirm Administered Dose 50 mcg .ROUTE .STK-MED ONE Stop: 09/26/17 08:27 Last Admin: 09/26/17 09:14 Dose: Not Given Misoprostol (Cytotec) 50 mcg VAG ONETIME ONE Stop: 09/26/17 08:21 Last Admin: 09/26/17 08:23 Dose: 50 mcg Misoprostol (Cytotec) Confirm Administered Dose 25 mcg .ROUTE .STK-MED ONE Stop: 09/26/17 12:29 Last Admin: 09/26/17 12:33 Dose: Not Given Misoprostol (Cytotec) 25 mcg VAG ONETIME ONE Stop: 09/26/17 12:41 Last Admin: 09/26/17 12:34 Dose: 25 mcg - Interaction Infant Disposition, : in Room with Family Infant Interaction: Holding Infant Infant Feeding: Breastfed ; Nursed Well Support Person: Significant Other - Recovery Exam Fundal Tone: Firms with Massage Fundal Level: 2 Fingerbreadths Above Umbilicus Fundal Placement: Midline Lochia Amount: Moderate Lochia Color: Rubra/Red Perineum Description: Edematous Other Perinuem Description: No hematoma on digital exam Episiotomy/Laceration: Approximated Urinary Elimination: Voided - Exam General: Alert, Oriented HEENT: Pupils Equal Neck: Supple Lungs: Clear to Auscultation, Normal Respiratory Effort Cardiovascular: Regular Rate, Regular Rhythm GI/Abdominal Exam: Normal Bowel Sounds, Soft, Non-Tender, No Organomegaly, No Distention, No Abnormal Bruit, No Mass, Pelvis Stable Extremities: Normal Inspection, Normal Range of Motion, Non-Tender, No Pedal Edema, Normal Capillary Refill Skin: Warm, Dry, Intact Wound/Incisions: Healing Well Neurological: No New Focal Deficit Psy/Mental Status: Alert, Normal Affect, Normal Mood - Problem List & Annotations (1) Post-dates SNOMED Code(s): 43190686 Code(s): O48.0 - POST-TERM Status: Acute Current Visit: Yes (2) Elective induction of labor planned SNOMED Code(s): 107128932 Code(s): TBS5097 - Status: Acute Current Visit: Yes (3) (infant) SNOMED Code(s): 641600746 Code(s): Z78.9 - OTHER SPECIFIED HEALTH STATUS Status: Acute Current Visit: Yes (4) Normal labor and delivery SNOMED Code(s): 00420596 Code(s): O80 - ENCOUNTER FOR FULL-TERM UNCOMPLICATED DELIVERY Status: Acute Current Visit: Yes (5) Vaginal tear resulting from childbirth SNOMED Code(s): 143104606 Code(s): O71.4 - OBSTETRIC HIGH VAGINAL LACERATION ALONE Status: Acute Current Visit: Yes (6) Positive GBS test SNOMED Code(s): 7837180071360 Code(s): B95.1 - STREPTOCOCCUS, GROUP B, CAUSING DISEASES CLASSD ELSR Status: Acute Current Visit: Yes - Problem List Review Problem List Initiated/Reviewed/Updated: Yes - My Orders Last 24 Hours: My Active Orders 09/26/17 18:00 Insert Sandhu Catheter [Insert Urinary Catheter] [OM.PC] Q24H 09/26/17 22:35 Ibuprofen [Motrin] 600 mg PO Q6H PRN 09/26/17 22:54 Acetaminophen/Codeine [Tylenol with Codeine No.3 300MG/30MG] 1 tab PO Q4H PRN Benzocaine [[id number]-M-Qrieocv 20% [place]] See Dose Instructions TOP Q4H PRN Docusate Sodium [Colace] 100 mg PO BID PRN Lanolin [Lansinoh HPA] 0 gm TOP ASDIRECTED PRN Sennosides [Senna] 8.6 mg PO BEDTIME PRN Witch Melissa [Tucks] 1 pad TOP ASDIRECTED PRN Assess Lochia [WOMSER] Per Unit Routine Assess Uterine Involution [WOMSER] Per Unit Routine Resuscitation Status Routine 09/26/17 22:55 Patient Status [ADT] Routine 09/26/17 23:01 Ice Therapy [OM.PC] Per Unit Routine Perineal Care [OM.PC] Per Unit Routine Peripheral IV Discontinue [OM.PC] Routine Sitz Bath [OM.PC] Per Unit Routine 09/26/17 Lunch Regular Diet [DIET] 09/27/17 17:00 Ferrous Sulfate 325 mg PO BIDMEALS 09/28/17 09:00 Docusate Sodium [Colace] 100 mg PO DAILY - Assessment Assessment:: 21 year old G2 now P2 with complications, slow decent, vacuum assisted delivery, shoulder dystocia and 2nd degree laceration. breast feeding HGB 11.4, PLT 321 GBS treated, SROM clear at 1610 HIV negative UDS negative Rubella immune 09/27/17 HGB 9.4 this morning, added Ferrous sulfate daily Baby latching well, needs support and education Repair intact and without hematoma Happy - Plan Plan:: 21 year old 41 weeks gestation, post dates here for induction of labor. Hung score 9, CE 2/75/0 anterior Positive GBS Plan: Misoprostol 50 mcg this morning, may repeat at noon Monitor for active labor GBS protocol started Plan for vaginal delivery later today. 09/26/17 Routine care 48 hour stay support HGB in am 09/27/17 Needs 48 hour stay, will discharge Friday as she delivered late last night Education on baby cares and Sitz bath and stool softeners
[2017-09-27] MEDS: Docusate Sodium 100 MG Cap PO SCH (11:20)
[2017-09-27] MEDS: Ferrous Sulfate 325 MG Tab PO SCH ×2 (12:16→16:59)
[2017-09-28] MEDS: Ibuprofen 600 MG Tab PO PRN ×4 (01:26→22:44)
[2017-09-28] MEDS: Acetaminophen/Codeine 300-30 MG Tab PO PRN (05:30)
--- NOTE | 2017-09-28 08:43 | PCM.PNPP ---
- General Info Date of Service: 09/28/17 (PPD 2) Admission Dx/Problem (Free Text): Patient Status Order with Admit Dx/Problem 09/26/17 08:33 Patient Status [ADT] Routine Admission Diagnosis/Problem Admission Diagnosis/Problem Functional Status: Reports: Pain Controlled, Other (Has nipple discomfort and repair area is tender) - Review of Systems General: Reports: No Symptoms HEENT: Reports: No Symptoms Pulmonary: Reports: No Symptoms Cardiovascular: Reports: No Symptoms Gastrointestinal: Reports: No Symptoms Genitourinary: Reports: No Symptoms Musculoskeletal: Reports: No Symptoms Skin: Reports: No Symptoms Neurological: Reports: No Symptoms Psychiatric: Reports: No Symptoms - General Info Date of Service: 09/28/17 - Patient Data Vital Signs - Most Recent: Last Vital Signs Temp 99.0 F 09/28/17 05:00 Pulse 82 09/28/17 05:00 Resp 16 09/28/17 05:00 BP 102/55 L 09/28/17 05:00 Pulse Ox 97 09/28/17 05:00 Weight - Most Recent: 209 lb 0.007 oz I&O - Last 24 Hours: Intake & Output 09/27/17 09/28/17 09/28/17 22:59 06:59 14:59 Intake Total 620 1000 Balance 620 1000 Med Orders - Current: Current Medications Acetaminophen (Tylenol) 650 mg PO Q4H PRN PRN Reason: Pain (Mild 1-3) and fever Last Admin: 09/27/17 15:46 Dose: 650 mg Acetaminophen/Codeine Phosphate (Tylenol With Codeine No.3 300mg/30mg) 1 tab PO Q4H PRN PRN Reason: Pain (moderate 4-6) Last Admin: 09/28/17 05:30 Dose: 1 tab Benzocaine (Xkwa-B-Uuksxpq 20% [place]) 0 gm TOP Q4H PRN PRN Reason: Perineal Comfort Measure Docusate Sodium (Colace) 100 mg PO BID PRN PRN Reason: Constipation Last Admin: 09/27/17 20:44 Dose: 100 mg Docusate Sodium (Colace) 100 mg PO DAILY MAICOL Last Admin: 09/27/17 11:20 Dose: Not Given Emollient Ointment (Lansinoh Hpa) 0 gm TOP ASDIRECTED PRN PRN Reason: Sore Nipples Ferrous Sulfate (Ferrous Sulfate) 325 mg PO BIDMEALS MAICOL Last Admin: 09/27/17 16:59 Dose: 325 mg Oxytocin/Sodium Chloride (Pitocin In Ns 20 Units/1,000 Ml) 20 unit in 1,000 mls @ 6 mls/hr IV TITRATE MAICOL; 2 MUNITS/MIN PRN Reason: Protocol Last Titration: 09/26/17 22:35 Dose: 125 mls/hr Ibuprofen (Motrin) 600 mg PO Q6H PRN PRN Reason: Pain Last Admin: 09/28/17 01:26 Dose: 600 mg Ondansetron HCl (Zofran Odt) 4 mg PO Q4H PRN PRN Reason: Nausea/Vomiting Senna (Senna) 8.6 mg PO BEDTIME PRN PRN Reason: Constipation Sodium Chloride (Saline Flush) 10 ml FLUSH ASDIRECTED PRN PRN Reason: Keep Vein Open Witch Melissa (Tucks) 1 pad TOP ASDIRECTED PRN PRN Reason: Hemorrhoids Last Admin: 09/27/17 11:03 Dose: 1 applic Discontinued Medications Ephedrine Sulfate (Ephedrine Sulfate) 5 - 10 mg IVPUSH ONETIME ONE Stop: 09/26/17 16:16 Last Admin: 09/27/17 02:07 Dose: Not Given Ephedrine Sulfate (Ephedrine Sulfate) Confirm Administered Dose 50 mg .ROUTE .STK-MED ONE Stop: 09/26/17 16:19 Last Admin: 09/26/17 18:27 Dose: Not Given Fentanyl (Sublimaze) 100 mcg IVPUSH Q1H PRN PRN Reason: Pain (moderate 4-6) Last Admin: 09/26/17 16:53 Dose: 100 mcg Penicillin G Potassium 5 (millunits/ Sodium Chloride) 100 mls @ 200 mls/hr IV ONETIME ONE Stop: 09/26/17 09:29 Last Admin: 09/26/17 09:14 Dose: 200 mls/hr Penicillin G Potassium 2.5 (millunits/ Sodium Chloride) 50 mls @ 100 mls/hr IV Q4H MAICOL Last Admin: 09/27/17 02:08 Dose: Not Given Ropivacaine (Naropin 0.2%) Confirm Administered Dose 100 mls @ as directed .ROUTE .STK-MED ONE Stop: 09/26/17 18:13 Sodium Chloride (Normal Saline) 1,000 mls @ 999 mls/hr IV .BOLUS ONE Stop: 09/26/17 17:10 Last Admin: 09/26/17 16:12 Dose: 999 mls/hr Lidocaine HCl (Xylocaine 1%) Confirm Administered Dose 50 ml .ROUTE .STK-MED ONE Stop: 09/26/17 21:46 Last Admin: 09/27/17 02:08 Dose: Not Given Misoprostol (Cytotec) Confirm Administered Dose 50 mcg .ROUTE .STK-MED ONE Stop: 09/26/17 08:27 Last Admin: 09/26/17 09:14 Dose: Not Given Misoprostol (Cytotec) 50 mcg VAG ONETIME ONE Stop: 09/26/17 08:21 Last Admin: 09/26/17 08:23 Dose: 50 mcg Misoprostol (Cytotec) Confirm Administered Dose 25 mcg .ROUTE .STK-MED ONE Stop: 09/26/17 12:29 Last Admin: 09/26/17 12:33 Dose: Not Given Misoprostol (Cytotec) 25 mcg VAG ONETIME ONE Stop: 09/26/17 12:41 Last Admin: 09/26/17 12:34 Dose: 25 mcg - Interaction Infant Disposition, : in Room with Family Interaction: Holding Infant Infant Feeding: Breastfed ; Nursed Well, Continues to Breastfeed, Encouraged to Breastfeed Support Person: Significant Other - Recovery Exam Fundal Tone: Firm Fundal Level: 1 Fingerbreadths Below Umbilicus Fundal Placement: Left Lochia Amount: Moderate Lochia Color: Rubra/Red Perineum Description: Edematous Other Perinuem Description: No hematoma on digital exam Episiotomy/Laceration: Approximated Bladder Status: Voiding Urinary Elimination: Voided Other Urinary Elimination, : checked prior to void. - Exam General: Alert, Oriented HEENT: Pupils Equal Neck: Supple Lungs: Clear to Auscultation, Normal Respiratory Effort Cardiovascular: Regular Rate, Regular Rhythm GI/Abdominal Exam: Normal Bowel Sounds, Soft, Non-Tender, No Organomegaly, No Distention, No Abnormal Bruit, No Mass, Pelvis Stable Extremities: Normal Inspection, Normal Range of Motion, Non-Tender, No Pedal Edema, Normal Capillary Refill Skin: Warm, Dry, Intact Wound/Incisions: Healing Well Neurological: No New Focal Deficit Psy/Mental Status: Alert, Normal Affect, Normal Mood - Problem List & Annotations (1) Post-dates SNOMED Code(s): 91649863 Code(s): O48.0 - POST-TERM Status: Acute Current Visit: Yes (2) Elective induction of labor planned SNOMED Code(s): 665728352 Code(s): TBH6365 - Status: Acute Current Visit: Yes (3) () SNOMED Code(s): 388574766 Code(s): Z78.9 - OTHER SPECIFIED HEALTH STATUS Status: Acute Current Visit: Yes (4) Normal labor and delivery SNOMED Code(s): 72683320 Code(s): O80 - ENCOUNTER FOR FULL-TERM UNCOMPLICATED DELIVERY Status: Acute Current Visit: Yes (5) Vaginal tear resulting from childbirth SNOMED Code(s): 085203175 Code(s): O71.4 - OBSTETRIC HIGH VAGINAL LACERATION ALONE Status: Acute Current Visit: Yes (6) Positive GBS test SNOMED Code(s): 7033397054282 Code(s): B95.1 - STREPTOCOCCUS, GROUP B, CAUSING DISEASES CLASSD ELSWHR Status: Acute Current Visit: Yes - Problem List Review Problem List Initiated/Reviewed/Updated: Yes - My Orders Last 24 Hours: My Active Orders 09/27/17 11:30 Docusate Sodium [Colace] 100 mg PO DAILY Ferrous Sulfate 325 mg PO BIDMEALS - Assessment Assessment:: 21 year old G2 now P2 with complications, slow decent, vacuum assisted delivery, shoulder dystocia and 2nd degree laceration. breast feeding HGB 11.4, PLT 321 GBS treated, SROM clear at 1610 HIV negative UDS negative Rubella immune 09/27/17 HGB 9.4 this morning, added Ferrous sulfate daily Baby latching well, needs support and education Repair intact and without hematoma Happy 09/28/17 Doing well Support system is her sisters Had pain medication for bottom discomfort bleeding is light Breast feeding is going OK, has troubles keeping baby latched. - Plan Plan:: 21 year old 41 weeks gestation, post dates here for induction of labor. Hung score 9, CE /0 anterior Positive GBS Plan: Misoprostol 50 mcg this morning, may repeat at noon Monitor for active labor GBS protocol started Plan for vaginal delivery later today. 09/26/17 Routine care 48 hour stay support HGB in am 09/27/17 Needs 48 hour stay, will discharge Friday AM as she delivered late last night Education on baby cares and Sitz bath and stool softeners 09/28/17 Home tomorrow morning Continue routine cares Staff to continue working on breast feeding sitz bath today
[2017-09-28] MEDS: Ferrous Sulfate 325 MG Tab PO SCH ×2 (09:19→17:44)
[2017-09-28] MEDS: Docusate Sodium 100 MG Cap PO SCH (09:19)
[2017-09-28] MEDS: Acetaminophen 325 MG Tab PO PRN (17:47)
[2017-09-29] MEDS: Acetaminophen 325 MG Tab PO PRN ×2 (03:03→11:11)
[2017-09-29] MEDS: Ibuprofen 600 MG Tab PO PRN (08:26)
[2017-09-29] MEDS: Ferrous Sulfate 325 MG Tab PO SCH (08:27)
[2017-09-29] MEDS: Docusate Sodium 100 MG Cap PO SCH (08:27)
[2017-09-29 08:30] VITALS: BP 124/73
--- NOTE | 2017-09-29 08:33 | PCM.PNPP ---
- General Info Date of Service: 09/29/17 (PPD 2 D/C) Admission Dx/Problem (Free Text): Patient Status Order with Admit Dx/Problem 09/26/17 08:33 Patient Status [ADT] Routine Admission Diagnosis/Problem Admission Diagnosis/Problem Functional Status: Reports: Pain Controlled - Review of Systems General: Reports: No Symptoms HEENT: Reports: No Symptoms Pulmonary: Reports: No Symptoms Cardiovascular: Reports: No Symptoms Gastrointestinal: Reports: No Symptoms Genitourinary: Reports: No Symptoms Musculoskeletal: Reports: No Symptoms Skin: Reports: No Symptoms Neurological: Reports: No Symptoms Psychiatric: Reports: No Symptoms - Patient Data Vital Signs - Most Recent: Last Vital Signs Temp 98.2 F 09/29/17 03:20 Pulse 73 09/29/17 03:20 Resp 20 09/29/17 03:20 BP 112/55 L 09/29/17 03:20 Pulse Ox 94 L 09/29/17 03:20 Weight - Most Recent: 209 lb 0.007 oz I&O - Last 24 Hours: Intake & Output 09/28/17 09/29/17 09/29/17 22:59 06:59 14:59 Intake Total 1040 700 Balance 1040 700 Med Orders - Current: Current Medications Acetaminophen (Tylenol) 650 mg PO Q4H PRN PRN Reason: Pain (Mild 1-3) and fever Last Admin: 09/29/17 03:03 Dose: 650 mg Acetaminophen/Codeine Phosphate (Tylenol With Codeine No.3 300mg/30mg) 1 tab PO Q4H PRN PRN Reason: Pain (moderate 4-6) Last Admin: 09/28/17 05:30 Dose: 1 tab Benzocaine (Ncho-K-Gswjuur 20% [place]) 0 gm TOP Q4H PRN PRN Reason: Perineal Comfort Measure Docusate Sodium (Colace) 100 mg PO BID PRN PRN Reason: Constipation Last Admin: 09/27/17 20:44 Dose: 100 mg Docusate Sodium (Colace) 100 mg PO DAILY [facility] Last Admin: 09/29/17 08:27 Dose: 100 mg Emollient Ointment (Lansinoh Hpa) 0 gm TOP ASDIRECTED PRN PRN Reason: Sore Nipples Ferrous Sulfate (Ferrous Sulfate) 325 mg PO BIDMEALS [facility] Last Admin: 09/29/17 08:27 Dose: 325 mg Oxytocin/Sodium Chloride (Pitocin In Ns 20 Units/1,000 Ml) 20 unit in 1,000 mls @ 6 mls/hr IV TITRATE MAICOL; 2 MUNITS/MIN PRN Reason: Protocol Last Titration: 09/26/17 22:35 Dose: 125 mls/hr Ibuprofen (Motrin) 600 mg PO Q6H PRN PRN Reason: Pain Last Admin: 09/29/17 08:26 Dose: 600 mg Ondansetron HCl (Zofran Odt) 4 mg PO Q4H PRN PRN Reason: Nausea/Vomiting Senna (Senna) 8.6 mg PO BEDTIME PRN PRN Reason: Constipation Sodium Chloride (Saline Flush) 10 ml FLUSH ASDIRECTED PRN PRN Reason: Keep Vein Open Witch Melissa (Tucks) 1 pad TOP ASDIRECTED PRN PRN Reason: Hemorrhoids Last Admin: 09/27/17 11:03 Dose: 1 applic Discontinued Medications Ephedrine Sulfate (Ephedrine Sulfate) 5 - 10 mg IVPUSH ONETIME ONE Stop: 09/26/17 16:16 Last Admin: 09/27/17 02:07 Dose: Not Given Ephedrine Sulfate (Ephedrine Sulfate) Confirm Administered Dose 50 mg .ROUTE .STK-MED ONE Stop: 09/26/17 16:19 Last Admin: 09/26/17 18:27 Dose: Not Given Fentanyl (Sublimaze) 100 mcg IVPUSH Q1H PRN PRN Reason: Pain (moderate 4-6) Last Admin: 09/26/17 16:53 Dose: 100 mcg Penicillin G Potassium 5 (millunits/ Sodium Chloride) 100 mls @ 200 mls/hr IV ONETIME ONE Stop: 09/26/17 09:29 Last Admin: 09/26/17 09:14 Dose: 200 mls/hr Penicillin G Potassium 2.5 (millunits/ Sodium Chloride) 50 mls @ 100 mls/hr IV Q4H MAICOL Last Admin: 09/27/17 02:08 Dose: Not Given Ropivacaine (Naropin 0.2%) Confirm Administered Dose 100 mls @ as directed .ROUTE .STK-MED ONE Stop: 09/26/17 18:13 Sodium Chloride (Normal Saline) 1,000 mls @ 999 mls/hr IV .BOLUS ONE Stop: 09/26/17 17:10 Last Admin: 09/26/17 16:12 Dose: 999 mls/hr Lidocaine HCl (Xylocaine 1%) Confirm Administered Dose 50 ml .ROUTE .STK-MED ONE Stop: 09/26/17 21:46 Last Admin: 09/27/17 02:08 Dose: Not Given Misoprostol (Cytotec) Confirm Administered Dose 50 mcg .ROUTE .STK-MED ONE Stop: 09/26/17 08:27 Last Admin: 09/26/17 09:14 Dose: Not Given Misoprostol (Cytotec) 50 mcg VAG ONETIME ONE Stop: 09/26/17 08:21 Last Admin: 09/26/17 08:23 Dose: 50 mcg Misoprostol (Cytotec) Confirm Administered Dose 25 mcg .ROUTE .STK-MED ONE Stop: 09/26/17 12:29 Last Admin: 09/26/17 12:33 Dose: Not Given Misoprostol (Cytotec) 25 mcg VAG ONETIME ONE Stop: 09/26/17 12:41 Last Admin: 09/26/17 12:34 Dose: 25 mcg - Interaction Infant Disposition, : [place] in Room with Family Infant Interaction: Holding Infant Infant Feeding: Breastfed ; Nursed Well, Continues to Breastfeed, Encouraged to Breastfeed Support Person: Significant Other - Recovery Exam Fundal Tone: Firm Fundal Level: 1 Fingerbreadths Below Umbilicus Fundal Placement: Midline Lochia Amount: Moderate Lochia Color: Rubra/Red Perineum Description: Intact, Minimal Bruising/Swelling Other Perinuem Description: repair looks great. Labia remain bruised and tender Episiotomy/Laceration: Approximated Bladder Status: Voiding Urinary Elimination: Voided Other Urinary Elimination, : checked prior to void. - Exam General: Alert, Oriented HEENT: Pupils Equal Neck: Supple Lungs: Clear to Auscultation, Normal Respiratory Effort Cardiovascular: Regular Rate, Regular Rhythm GI/Abdominal Exam: Normal Bowel Sounds, Soft, Non-Tender, No Organomegaly, No Distention, No Abnormal Bruit, No Mass, Pelvis Stable Extremities: Normal Inspection, Normal Range of Motion, Non-Tender, No Pedal Edema, Normal Capillary Refill Skin: Warm, Dry, Intact Wound/Incisions: Healing Well Neurological: No New Focal Deficit Psy/Mental Status: Alert, Normal Affect, Normal Mood - Problem List & Annotations (1) Post-dates SNOMED Code(s): 33185350 Code(s): O48.0 - POST-TERM Status: Acute Current Visit: Yes (2) Elective induction of labor planned SNOMED Code(s): 942749990 Code(s): GZB0207 - Status: Acute Current Visit: Yes (3) (infant) SNOMED Code(s): 781249507 Code(s): Z78.9 - OTHER SPECIFIED HEALTH STATUS Status: Acute Current Visit: Yes (4) Normal labor and delivery SNOMED Code(s): 12379774 Code(s): O80 - ENCOUNTER FOR FULL-TERM UNCOMPLICATED DELIVERY Status: Acute Current Visit: Yes (5) Vaginal tear resulting from childbirth SNOMED Code(s): 916080300 Code(s): O71.4 - OBSTETRIC HIGH VAGINAL LACERATION ALONE Status: Acute Current Visit: Yes (6) Positive GBS test SNOMED Code(s): 5769870989672 Code(s): B95.1 - STREPTOCOCCUS, GROUP B, CAUSING DISEASES CLASSD ELSWHR Status: Acute Current Visit: Yes - Problem List Review Problem List Initiated/Reviewed/Updated: Yes - Assessment Assessment:: 21 year old G2 now P2 with complications, slow decent, vacuum assisted delivery, shoulder dystocia and 2nd degree laceration. breast feeding HGB 11.4, PLT 321 GBS treated, SROM clear at 1610 HIV negative UDS negative Rubella immune 09/27/17 HGB 9.4 this morning, added Ferrous sulfate daily Baby latching well, needs support and education Repair intact and without hematoma Happy 09/28/17 Doing well Support system is her sisters Had pain medication for bottom discomfort bleeding is light Breast feeding is going OK, has troubles keeping baby latched. 09/29/17 Doing well latching better using nipple shield tender bottom, rpair looks good. Its all the rest that remains swollen and tender Wants to go home - Plan Plan:: 21 year old 41 weeks gestation, post dates here for induction of labor. Hung score 9, CE 75/0 anterior Positive GBS Plan: Misoprostol 50 mcg this morning, may repeat at noon Monitor for active labor GBS protocol started Plan for vaginal delivery later today. 09/26/17 Routine care 48 hour stay support HGB in am 09/27/17 Needs 48 hour stay, will discharge Friday AM as she delivered late last night Education on baby cares and Sitz bath and stool softeners 09/28/17 Home tomorrow morning Continue routine cares Staff to continue working on breast feeding sitz bath today Home today see me in 6 weeks for a post visit
== END 2017-09-29 11:28 | disposition home or self-care (01) | DRG 775 ==
LOC: JP.OBCHECK 07:16 → JP.OB 07:18 → OBSVTOIN 22:05 → JP.MS 09-27 00:26
PROVIDERS: ADMIT Nurse Practitioner Family; ATTEND Nurse Practitioner Family
PROC: 10D07Z6 Extraction of Products of Conception, Vacuum, Via Natural or Artificial Opening (ICD-10-PCS; principal; 2017-09-26)
PROC: 0KQM0ZZ Repair Perineum Muscle, Open Approach (ICD-10-PCS; 2017-09-26)
PROC: 3E0P7VZ Introduction of Hormone into Female Reproductive, Via Natural or Artificial Opening (ICD-10-PCS; 2017-09-26)
DX: O48.0 Post-term pregnancy (principal); O66.0 Obstructed labor due to shoulder dystocia; O70.1 Second degree perineal laceration during delivery; O99.824 Streptococcus B carrier state complicating childbirth; O77.0 Labor and delivery complicated by meconium in amniotic fluid; Z37.0 Single live birth; Z3A.40 40 weeks gestation of pregnancy
CPT/HCPCS: 36415; 59409; 80305; 81001; 85025; A9270-GY; J2540; J2590; J2795; J3010; J7040; J7050

== ENCOUNTER 2018-07-19 16:19 | Emergency (ER) | payer MEDICAID ==
[2018-07-19 16:34] VITALS: BP 119/77
[2018-07-19] MEDS ORDERED: cefTRIAXone 1 GM, Lidocaine 1% 2.1 ML IM ONE ×2 (17:04)
--- NOTE | 2018-07-19 17:11 | EDM.PDOC ---
ED HPI GENERAL MEDICAL PROBLEM - General Chief Complaint: Back Pain or Injury Stated Complaint: LOWER BACK AND ABDOMINAL PAIN Time Seen by Provider: 07/19/18 16:41 Source of Information: Reports: Patient History Limitations: Reports: No Limitations - History of Present Illness INITIAL COMMENTS - FREE TEXT/NARRATIVE: bladder pain; this is a 22 year old female presents to ER wit Boyfriend and infant. reports has been sick with bladder pain for the past 4 days, has tried cranberry pills, but not helping, now with painful back. denies fever, chills, nausea, vomiting, or breast feeding. control IUD, placed in Nov 2017. no concerns, except Boyfriend reports he can feel the strings. no pain with coitus. Onset: Gradual Onset Date: 07/16/18 Duration: Day(s): (4), Getting Worse Location: Reports: Abdomen, Radiates to (low back) Quality: Reports: Burning, Sharp, Throbbing Severity: Moderate Improves with: Reports: None Worsens with: Reports: Other (voiding) Associated Symptoms: Reports: No Other Symptoms Treatments HYDROSTATIC TESTER: Reports: Acetaminophen Lower Back Pain Score (Numeric/FACES): 10 - Related Data Allergies Allergy/AdvReac Type Severity Reaction Status Date / Time No Known Allergies Allergy Verified 07/19/18 16:35 Home Meds: Home Meds NK [No Known Home Meds] 07/19/18 [History] Past Medical History 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 History: at 13wks edc sep 19 - Past Surgical History HEENT Surgical History: Reports: Eye Surgery Social & Family History - Family History Family Medical History: Noncontributory - Tobacco Use Smoking Status *Q: Light Tobacco Smoker Years of Tobacco use: 6 Packs/Tins Daily: 0.5 - Caffeine Use Caffeine Use: Reports: Coffee, Soda Other Caffeine Use: occational - Recreational Drug Use Recreational Drug Use: No ED ROS GENERAL - Review of Systems Review Of Systems: See Below Constitutional: Reports: Other (dysuria ith back pain) HEENT: Reports: No Symptoms Respiratory: Reports: No Symptoms Cardiovascular: Reports: No Symptoms Endocrine: Reports: No Symptoms GI/Abdominal: Reports: Abdominal Pain (low) : Reports: Dysuria, Flank Pain, Frequency, Hematuria Musculoskeletal: Reports: Back Pain Skin: Reports: No Symptoms Neurological: Reports: No Symptoms Psychiatric: Reports: No Symptoms Hematologic/Lymphatic: Reports: No Symptoms Immunologic: Reports: No Symptoms ED EXAM, GI/ABD - Physical Exam Exam: See Below Exam Limited By: No Limitations General Appearance: Alert, WD/WN, Mild Distress Eyes: Bilateral: Normal Appearance Head: Atraumatic, Normocephalic Respiratory/Chest: No Respiratory Distress Cardiovascular: Normal Peripheral Pulses GI/Abdominal Exam: Normal Bowel Sounds, Soft, No Organomegaly, No Distention, No Abnormal Bruit, No Mass, Pelvis Stable, Tender (mild low abdomen) (Female) Exam: Deferred Rectal (Female) Exam: Deferred Back Exam: Normal Inspection, Full Range of Motion, CVA Tenderness (R), CVA Tenderness (L) Extremities: Normal Inspection, Normal Range of Motion, Non-Tender, Normal Capillary Refill, No Pedal Edema Neurological: Alert, Oriented, Normal Gait, No Motor/Sensory Deficits Psychiatric: Normal Affect, Normal Mood Skin Exam: Warm, Dry, Intact, Normal Color, No Rash Lymphatic: No Adenopathy Course - Vital Signs Last Recorded V/S: Last Vital Signs Temp 35.8 C 07/19/18 16:32 Pulse 101 H 07/19/18 16:32 Resp 18 07/19/18 16:32 BP 119/77 07/19/18 16:32 Pulse Ox 97 07/19/18 16:32 - Orders/Labs/Meds Orders: due to back pain with positive urine test for uti, will give Rocephin 1 gram IM in ER, then discharge to home with Keflex, Pyrdium, Tylenol #3, advise to drink 8 to 10 glasses of water, follow up if not improved. advise to follow up with Primary Care if desires to have IUD removed. Ms. Jain agrees with plan of care. Labs: Laboratory Tests 07/19/18 07/19/18 Range/Units 16:45 16:45 Urine Color Yellow Urine Appearance Clear Urine pH 7.0 (4.5-8.0) Ur Specific [place] 1.005 L (1.008-1.030) Urine Protein Negative (NEGATIVE) mg/dL Urine Glucose (UA) Normal (NEGATIVE) mg/dL Urine Ketones Negative (NEGATIVE) mg/dL Urine Occult Blood Large (NEGATIVE) Urine Nitrite Negative (NEGATIVE) Urine Bilirubin Negative (NEGATIVE) Urine Urobilinogen Normal (NORMAL) mg/dL Ur Leukocyte Esterase Small (NEGATIVE) Urine RBC 10-20 H (0-5) Urine WBC 5-10 H (0-5) Ur Epithelial Cells Few Amorphous Sediment Few Urine Bacteria Not seen Urine Mucus Not seen Urine HCG, Qual Negative Meds: Medications Discontinued Medications Generic Name Dose Route Start Last Admin Trade Name Carl PRN Reason Stop Dose Admin Ceftriaxone Sodium 1 gm/ 0 gm 07/19/18 17:04 07/19/18 17:21 Lidocaine HCl 2.1 ml IM 07/19/18 17:05 2.1 inj ONETIME ONE Administration Departure - Departure Time of Disposition: 17:25 Disposition: Home, Self-Care 01 Condition: Good Clinical Impression: Urinary tract infection Qualifiers: Urinary tract infection type: acute cystitis Hematuria presence: with hematuria Qualified Code(s): N30.01 - Acute cystitis with hematuria - Discharge Information *PRESCRIPTION DRUG MONITORING PROGRAM REVIEWED*: Not Applicable *COPY OF PRESCRIPTION DRUG MONITORING REPORT IN PATIENT JERRICA: Not Applicable Instructions: Urinary Tract Infection, Adult Referrals: Shanna Warren CNM [Primary Care Provider] - Forms: ED Department Discharge, ED Return to Work/School Form Care Plan Goals: Urinary Tract Infection -Keflex 500mg one by mouth in morning and evening til gone -pyrdium 200mg one every 8 hours as needed for bladder pain or spasms -Tylenol with codeine one every 4 to 6 hours as needed for pain -drink at least 8 to 10 glasses of water for rehydration return to ER for any fever, chills, increase pain, nausea, vomiting, diarrhea, rash or not improved - Problem List & Annotations (1) Urinary tract infection SNOMED Code(s): 28430026 Code(s): N39.0 - URINARY TRACT INFECTION, SITE NOT SPECIFIED Status: Acute Priority: High Current Visit: Yes Qualifiers: Urinary tract infection type: acute cystitis Hematuria presence: with hematuria Qualified Code(s): N30.01 - Acute cystitis with hematuria - Problem List Review Problem List Initiated/Reviewed/Updated: Yes - Assessment/Plan Plan: Urinary Tract Infection -Keflex 500mg one by mouth in morning and evening til gone -pyrdium 200mg one every 8 hours as needed for bladder pain or spasms -Tylenol with codeine one every 4 to 6 hours as needed for pain -drink atleast 8 to 10 glasses of water for rehydration return to ER for any fever, chills, increase pain, nausea, vomiting, diarrhea, rash or not improved
== END 2018-07-19 17:26 | disposition home or self-care (01) ==
LOC: JP.ED 16:19
DX: N30.01 Acute cystitis with hematuria (principal); F17.210 Nicotine dependence, cigarettes, uncomplicated
CPT/HCPCS: 81001; 81025; 96372; 99284; J0696

== ENCOUNTER 2020-03-12 20:52 | Inpatient (IN) | payer MEDICAID ==
[2020-03-12] MEDS ORDERED: NIFEdipine 10 MG Cap PO ONE ×2 (21:44→22:15)
[2020-03-12] MEDS ORDERED: Lactated Ringers 1,000 ML IV SCH (22:00)
[2020-03-12] MEDS ORDERED: Penicillin G Potassium 5 MILLUNITS in Sodium Chloride 0.9% 50 ML IV ONE (22:19)
--- NOTE | 2020-03-12 22:20 | PCM.PN ---
- General Info Date of Service: 03/12/20 ( contractions) Admission Dx/Problem (Free Text): This 24 year old who is 35 weeks gestation with an CHELSEY of 04/16/20. Early today she thought her water had broke. Came in had a negative AmnioSure test. At that time had some mild BH contractions that were irregular. She went to work and the contractions got stronger, that was 4-5 pm. So she went home and tried resting. Presented here at 0900 with painful contractions every 2 minutes. RN CE 12/07/2 soft anterior. No leaking of fluid. Cat one strip Baseline FHT 150. Previous GBS positive Smoker Functional Status: Reports: Urinating - Review of Systems General: Reports: No Symptoms HEENT: Reports: No Symptoms Pulmonary: Reports: No Symptoms Cardiovascular: Reports: No Symptoms Gastrointestinal: Reports: No Symptoms Genitourinary: Reports: No Symptoms Musculoskeletal: Reports: No Symptoms Skin: Reports: No Symptoms Neurological: Reports: No Symptoms Psychiatric: Reports: No Symptoms - Patient Data Vitals - Most Recent: Last Vital Signs Temp 96.3 F L 03/12/20 21:00 Pulse 100 03/12/20 21:00 Resp 20 03/12/20 21:00 BP 131/76 03/12/20 22:00 Pulse Ox 97 03/12/20 21:00 I&O - Last 24 Hours: Intake & Output 03/12/20 03/12/20 03/12/20 06:59 14:59 22:59 Intake Total 1000 Balance 1000 Med Orders - Current: Current Medications Lactated Ringer's (Ringers, Lactated) 1,000 mls @ 999 mls/hr IV ASDIRECTED [facility] Stop: 03/12/20 23:00 Last Admin: 03/12/20 22:04 Dose: 999 mls/hr Nifedipine (Procardia) 20 mg PO ONETIME ONE Stop: 03/12/20 22:16 Discontinued Medications Nifedipine (Procardia) 20 mg PO ONETIME ONE Stop: 03/12/20 21:45 Last Admin: 03/12/20 22:00 Dose: 20 mg - Exam General: Alert, Oriented HEENT: Pupils Equal Neck: Supple Lungs: Clear to Auscultation, Normal Respiratory Effort Cardiovascular: Regular Rate, Regular Rhythm GI/Abdominal Exam: Normal Bowel Sounds, Soft (Female) Exam: Cervical Dilatation, Enlarged Uterus Back Exam: Normal Inspection Extremities: No Pedal Edema, Normal Capillary Refill Skin: Warm Wound/Incisions: Healing Well Psy/Mental Status: Alert, Normal Affect, Normal Mood Sepsis Event Note - Focused Exam Vital Signs: Vital Signs Temp Pulse Resp BP BP Pulse Ox 03/12/20 22:00 131/76 03/12/20 21:00 96.3 F L 100 20 131/76 97 Date Exam was Performed: 03/12/20 Time Exam was Performed: 22:11 - Problem List & Annotations (1) SNOMED Code(s): 54858450 Code(s): Z34.90 - ENCNTR FOR SUPRVSN OF NORMAL , UNSP, UNSP TRIMESTER Status: Acute Current Visit: Yes Qualifiers: Weeks of gestation: 35 weeks Qualified Code(s): Z3A.35 - 35 weeks gestation of (2) Tobacco dependence due to cigarettes SNOMED Code(s): 68730438682772955 Code(s): F17.210 - NICOTINE DEPENDENCE, CIGARETTES, UNCOMPLICATED Status: Acute Current Visit: No (3) labor in third trimester SNOMED Code(s): 9670984 Code(s): O60.03 - LABOR WITHOUT DELIVERY, THIRD TRIMESTER Status: Acute Current Visit: Yes Qualifiers: Fetus number: single or unspecified fetus - Problem List Review Problem List Initiated/Reviewed/Updated: Yes - My Orders Last 24 Hours: My Active Orders 03/12/20 21:45 OB Check [OM.PC] Click to Edit 03/12/20 22:00 Lactated Ringers [Ringers, Lactated] 1,000 ml IV ASDIRECTED 03/12/20 22:06 COMPREHENSIVE METABOLIC PN,CMP [CHEM] Routine 03/12/20 22:07 CBC W/O DIFF,HEMOGRAM [HEME] Routine 03/12/20 22:15 NIFEdipine [Procardia] 20 mg PO ONETIME ONE - Assessment Assessment:: 03/12/20 35 week IUP with contractions Plan: cover GBS, for unknown status and past positive IV fluids Oral Nifedipine 20 mg and repeat in 30 minutes. monitor for cervical change
[2020-03-12] MEDS ORDERED: Sodium Chloride 0.9% 50 ML ONE (22:27)
[2020-03-12] MEDS ORDERED: Premix Bag 1 BAG ONE (22:27)
[2020-03-12] MEDS ORDERED: Lidocaine 1% 50 ML MDV ONE (23:03)
[2020-03-12] MEDS ORDERED: Lidocaine 1% 50 ML MDV INJECT ONE (23:50)
[2020-03-12] MEDS ORDERED: Hydrocortisone 2.5% Crm 30 GM Tube TOP PRN (23:57)
[2020-03-12] MEDS ORDERED: Witch Hazel Medicated Pads 100/Jar TOP ONE (23:57)
[2020-03-12] MEDS ORDERED: Benzocaine 20% Top Spray 56 GM Bottle TOP ONE (23:57)
[2020-03-13] MEDS ORDERED: Ibuprofen 200 MG Tab, 24 Tab Bulk Bottle PO PRN
[2020-03-13] MEDS ORDERED: Acetaminophen 325 MG Tab, 50 Tab Bulk Bottle PO PRN
--- NOTE | 2020-03-13 00:11 | PCM.LDHP ---
L&D History of Present Illness - General Date of Service: 03/12/20 Admit Problem/Dx: This 24 year old who is 35 weeks gestation with an CHELSEY of 04/16/20. Early today she thought her water had broke. Came in had a negative AmnioSure test. At that time had some mild BH contractions that were irregular. She went to work and the contractions got stronger, that was 4-5 pm. So she went home and tried resting. Presented here at 0900 with painful contractions every 2 minutes. RN CE 12/07/2 soft anterior. No leaking of fluid. Cat one strip Baseline FHT 150. Previous GBS positive Smoker Source of Information: Patient History Limitations: Reports: No Limitations - History of Present Illness Introduction:: This 24 year old 35 week presents with labor. smoker unknown GBS Lab ABO Opos HIV neg Rubella immune GBS? Timing/Duration: Reports: minutes: (2) Location, : Reports: Abdomen, Lower back Quality: Reports: Pressure Severity: Moderate Improves with: Reports: None Worsens with: Reports: None - Related Data Allergies/Adverse Reactions: Allergies Allergy/AdvReac Type Severity Reaction Status Date / Time No Known Allergies Allergy Verified 03/12/20 22:14 Home Medications: Home Meds Pnv No.95/Ferrous Fum/Folic AC [ Multivitamin Tablet] 1 cap PO DAILY [History] Past Medical History CUT OFF MAN History: Reports: : 3 Para: 1 LMP (Approximate): (CHELSEY 04/16/20) - Past Surgical History HEENT Surgical History: Reports: Eye Surgery Social & Family History - Family History Family Medical History: Noncontributory - Tobacco Core Measures Tobacco Use/Smoking Within Last 30 Days: Yes Smokeless Tobacco Use in Last 30 Days: Yes - Caffeine Use Caffeine Use: Reports: Coffee, Soda Other Caffeine Use: occational H&P Review of Systems - Review of Systems: Review Of Systems: See Below General: Reports: No Symptoms HEENT: Reports: No Symptoms Pulmonary: Reports: No Symptoms Cardiovascular: Reports: No Symptoms Gastrointestinal: Reports: No Symptoms Genitourinary: Reports: No Symptoms Musculoskeletal: Reports: No Symptoms Skin: Reports: No Symptoms Psychiatric: Reports: No Symptoms Neurological: Reports: No Symptoms Hematologic/Lymphatic: Reports: No Symptoms Immunologic: Reports: No Symptoms L&D Exam - Exam Exam: See Below - Vital Signs Vital Signs: Last Vital Signs Temp 96.3 F L 03/12/20 21:00 Pulse 100 03/12/20 21:00 Resp 20 03/12/20 21:00 BP 131/76 03/12/20 22:00 Pulse Ox 97 03/12/20 21:00 Weight: 199 lb 15.877 oz - OB Specific Contraction Duration (sec): 40-50 Contraction Frequency (min): 2-3 Contraction Intensity: Mild to Moderate Movement: Active Heart Tones: Present Heart Rate (FHR) Variability: Moderate (6-25 bmp) Presentation: Vertex Estimated Weight: 5-6 pounds - Hung Score Hung Score Cervix Position: Anterior Hung Score Consistency: Soft Hung Score Effacement: >80% Hung Score Dilation: > 5 cm Hung Score 's Station: -1 ,0 Hung Score Total: 12 - Exam General: Alert, Oriented HEENT: PERRLA Neck: Supple Lungs: Clear to Auscultation Cardiovascular: Regular Rate, Regular Rhythm GI/Abdominal Exam: Normal Bowel Sounds Genitourinary: Normal external exam, Cervical dilitation, Enlarged uterus Back Exam: Normal Inspection Extremities: No Pedal Edema Skin: Warm, Dry, Intact Neurological: Cranial Nerves Intact, Reflexes Equal Bilateral Psychiatric: Alert, Normal Affect, Normal Mood - Patient Data Lab Results Last 24 hrs: Laboratory Results - last 24 hr 03/12/20 03/12/20 Range/Units 22:18 22:18 WBC 20.5 H (4.5-11.0) K/uL RBC 3.62 (3.30-5.50) M/uL Hgb 11.0 L (12.0-15.0) g/dL Hct 33.2 L (36.0-48.0) % MCV 92 (80-98) fL MCH 30 (27-31) pg MCHC 33 (32-36) % Plt Count 320 (150-400) K/uL Sodium 135 L (140-148) mmol/L Potassium 4.0 (3.6-5.2) mmol/L Chloride 101 (100-108) mmol/L Carbon Dioxide 21 (21-32) mmol/L Anion Gap 17.0 H (5.0-14.0) mmol/L BUN 9 (7-18) mg/dL Creatinine 0.6 (0.6-1.0) mg/dL Est Cr Clr Drug Dosing 124.67 mL/min Estimated GFR (MDRD) > 60 (>60) Glucose 86 (74-106) mg/dL Calcium 8.7 (8.5-10.1) mg/dL Total Bilirubin 0.2 (0.2-1.0) mg/dL AST 12 L (15-37) U/L ALT 20 (12-78) U/L Alkaline Phosphatase 96 (46-116) U/L Total Protein 6.9 (6.4-8.2) g/dL Albumin 2.7 L (3.4-5.0) g/dL Globulin 4.2 H (2.3-3.5) g/dL Albumin/Globulin Ratio 0.6 L (1.2-2.2) Result Diagrams: 03/12/20 22:18 03/12/20 22:18 - Problem List (1) SNOMED Code(s): 31901815 ICD Code: Z34.90 - ENCNTR FOR SUPRVSN OF NORMAL , UNSP, UNSP TRIMESTER Status: Acute Current Visit: Yes Qualifiers: Weeks of gestation: 35 weeks Qualified Code(s): Z3A.35 - 35 weeks gestation of (2) Tobacco dependence due to cigarettes SNOMED Code(s): 77013909544197949 ICD Code: F17.210 - NICOTINE DEPENDENCE, CIGARETTES, UNCOMPLICATED Status: Acute Current Visit: Yes (3) labor in third trimester SNOMED Code(s): 8889748 ICD Code: O60.03 - LABOR WITHOUT DELIVERY, THIRD TRIMESTER Status: Acute Current Visit: Yes Qualifiers: Fetus number: single or unspecified fetus (4) delivery SNOMED Code(s): 521372698, 726195534 ICD Code: O60.10X0 - LABOR W DELIVERY, UNSP TRIMESTER, UNSP Status: Acute Current Visit: Yes (5) infant, 2,500 or more grams SNOMED Code(s): 837345724, 966000157, 344682939, 234930027 ICD Code: P07.30 - , UNSPECIFIED WEEKS OF GESTATION Status: Acute Current Visit: Yes (6) Vaginal tear resulting from childbirth SNOMED Code(s): 309680236 ICD Code: O71.4 - OBSTETRIC HIGH VAGINAL LACERATION ALONE Status: Acute Current Visit: Yes Problem List Initiated/Reviewed/Updated: Yes Orders Last 24hrs: Active Orders 24 hr Category Date Time Status Patient Status [ADT] Routine ADT 03/12/20 23:57 Ordered Antiembolic Devices [RC] .Routine Care 03/12/20 23:58 Ordered OB Check [OM.PC] Click to Edit Care 03/12/20 21:45 Ordered Up ad Keysha [RC] ASDIRECTED Care 03/12/20 23:57 Ordered VTE/DVT Education [RC] Click to Edit Care 03/12/20 23:58 Ordered Vital Signs [RC] PFP Care 03/12/20 23:57 Ordered Regular Diet [DIET] Diet 03/13/20 Breakfast Ordered CBC W/O DIFF,HEMOGRAM [HEME] AM Lab 03/13/20 05:11 Ordered Acetaminophen [Tylenol Bulk Bottle] Med 03/13/20 00:00 Ordered See Dose Instructions PO Q4H PRN Benzocaine [Yytb-Q-Ehhrrrq 20% [place]] Med 03/12/20 23:57 Once See Dose Instructions TOP Q4H ONE Hydrocortisone [Proctozone-HC 2.5% Crm] Med 03/12/20 23:57 Ordered 1 gm TOP ASDIRECTED PRN Ibuprofen [Motrin Bulk Bottle] Med 03/13/20 00:00 Ordered 600 mg PO Q6H PRN Oxytocin/Normal Saline [Pitocin in NS 20 Units/1,000 ML Med 03/12/20 23:45 Ordered ] 20 unit in 1,000 ml IV BOLUS olivier Dumont [Tucks] Med 03/12/20 23:57 Once 1 pad TOP ASDIRECTED ONE Assess Lochia [WOMSER] Per Unit Routine Oth 03/12/20 23:57 Ordered Assess Uterine Involution [WOMSER] Per Unit Routine Oth 03/12/20 23:57 Ordered DVT/VTE Prophylaxis Reflex [OM.PC] Routine Oth 03/12/20 23:57 Ordered Ice Therapy [OM.PC] Per Unit Routine Oth 03/12/20 23:58 Ordered Perineal Care [OM.PC] Per Unit Routine Oth 03/12/20 23:58 Ordered Peripheral IV Discontinue [OM.PC] Routine Oth 03/12/20 23:58 Ordered Sitz Bath [OM.PC] Per Unit Routine Oth 03/12/20 23:58 Ordered Resuscitation Status Routine Resus Stat 03/12/20 23:57 Ordered Medication Orders Acetaminophen (Tylenol Bulk Bottle) 0 mg PO Q4H PRN PRN Reason: Pain Benzocaine (Vvql-T-Mlakmet 20% [place]) 0 gm TOP Q4H ONE Stop: 03/12/20 23:58 Hydrocortisone (Proctozone-Hc 2.5% Crm) 1 gm TOP ASDIRECTED PRN PRN Reason: Itching Oxytocin/Sodium Chloride (Pitocin In Ns 20 Units/1,000 Ml) 20 unit in 1,000 mls @ 999 mls/hr IV BOLUS MAICOL; Protocol Ibuprofen (Motrin Bulk Bottle) 600 mg PO Q6H PRN PRN Reason: Pain Witch Melissa (Tucks) 1 pad TOP ASDIRECTED ONE Stop: 03/12/20 23:58 Assessment/Plan Comment:: Active labor Plan for vaginal delivery 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
--- NOTE | 2020-03-13 00:26 | PCM.DEL ---
L & D Note - General Info Date of Service: 03/12/20 Mother's Due Date: 04/16/20 - Delivery Note Labor: Spontaneous Delivery Outcome: Livebirth Infant Delivery Method: Spontaneous Vaginal Delivery-Single Infant Delivery Mode: Spontaneous Presentation: Vertex Nuchal Cord: None Anesthetic: Lidocaine (Xylocaine) 1% Plain Local Anesthetic Volume: 5cc Amniotic Fluid Description: Meconium Stained Episiotomy Type: None Laceration: 2nd Degree, Perineal Suture type: Chromic Suture size: 3-0 Placenta: Intact, Spontaneous Cord: 3 Vessels Estimated Blood Loss: 300 Resuscitation Needed: No [place]: Suctioned, Stimulated, Warmed, [place] Used, Warmer Used Provider: Shanna Warren Score 1 min: 8 (color) Score 5 min: 9 (color) Second Stage Interventions: Reports: Second Nurse Reviewed Heart Tones, Encouragement Given, Pushing Effectively Delivery Comments (Free Text/Narrative):: This 24 year old G3 nowP2 who is 35 weeks delivered via at 2300 a viable male in SAMEERA position. AROM at 2240 thick meconium. complete and pushing at 2253. The delivered into my arms and cried spontaneously. He was covered in thick green meconium. The cord was clamped and cut he was handed off to the nurse and placed on the warmer. Where he was dried and stimulated. Apgars of 8 and 9 all for color. Three vessel cord. HE initaly did fine and slowly started with retractions. Heart rate 160. O2 sat 95. He was taken to the nursery for further assessment and care. Mother delivered the placenta [place] intact, it was strained green and sent to pathology. Second degree perineal tear was repaired in standard fashion with 3-0 Vicryl. EBL 300cc. weight 6-5 Mother to post and baby to nursery and will be transferred out. First stage - General Info Date of Service: 03/13/20 Admission Dx/Problem (Free Text): This 24 year old who is 35 weeks gestation with an CHELSEY of 04/16/20. Early today she thought her water had broke. Came in had a negative AmnioSure test. At that time had some mild BH contractions that were irregular. She went to work and the contractions got stronger, that was 4-5 pm. So she went home and tried resting. Presented here at 0900 with painful contractions every 2 minutes. RN CE 12/07/-2 soft anterior. No leaking of fluid. Cat one strip Baseline FHT 150. Previous GBS positive Smoker Functional Status: Reports: Pain Controlled - Review of Systems General: Reports: No Symptoms HEENT: Reports: No Symptoms Pulmonary: Reports: No Symptoms Cardiovascular: Reports: No Symptoms Gastrointestinal: Reports: No Symptoms Genitourinary: Reports: No Symptoms Musculoskeletal: Reports: No Symptoms Skin: Reports: No Symptoms Neurological: Reports: No Symptoms Psychiatric: Reports: No Symptoms - Patient Data Vitals - Most Recent: Last Vital Signs Temp 96.3 F L 03/12/20 21:00 Pulse 100 03/12/20 21:00 Resp 20 03/12/20 21:00 BP 131/76 03/12/20 22:00 Pulse Ox 97 03/12/20 21:00 Weight - Most Recent: 199 lb 15.877 oz I&O - Last 24 Hours: Intake & Output 03/12/20 03/12/20 03/13/20 14:59 22:59 06:59 Intake Total 1000 Balance 1000 Lab Results Last 24 Hours: Laboratory Results - last 24 hr 03/12/20 03/12/20 Range/Units 22:18 22:18 WBC 20.5 H (4.5-11.0) K/uL RBC 3.62 (3.30-5.50) M/uL Hgb 11.0 L (12.0-15.0) g/dL Hct 33.2 L (36.0-48.0) % MCV 92 (80-98) fL MCH 30 (27-31) pg MCHC 33 (32-36) % Plt Count 320 (150-400) K/uL Sodium 135 L (140-148) mmol/L Potassium 4.0 (3.6-5.2) mmol/L Chloride 101 (100-108) mmol/L Carbon Dioxide 21 (21-32) mmol/L Anion Gap 17.0 H (5.0-14.0) mmol/L BUN 9 (7-18) mg/dL Creatinine 0.6 (0.6-1.0) mg/dL Est Cr Clr Drug Dosing 124.67 mL/min Estimated GFR (MDRD) > 60 (>60) Glucose 86 (74-106) mg/dL Calcium 8.7 (8.5-10.1) mg/dL Total Bilirubin 0.2 (0.2-1.0) mg/dL AST 12 L (15-37) U/L ALT 20 (12-78) U/L Alkaline Phosphatase 96 (46-116) U/L Total Protein 6.9 (6.4-8.2) g/dL Albumin 2.7 L (3.4-5.0) g/dL Globulin 4.2 H (2.3-3.5) g/dL Albumin/Globulin Ratio 0.6 L (1.2-2.2) Med Orders - Current: Current Medications Acetaminophen (Tylenol Bulk Bottle) 0 mg PO Q4H PRN PRN Reason: Pain Benzocaine (Vaob-F-Iiafram 20% [place]) 0 gm TOP Q4H ONE Stop: 03/12/20 23:58 Hydrocortisone (Proctozone-Hc 2.5% Crm) 1 gm TOP ASDIRECTED PRN PRN Reason: Itching Oxytocin/Sodium Chloride (Pitocin In Ns 20 Units/1,000 Ml) 20 unit in 1,000 mls @ 999 mls/hr IV BOLUS MAICOL; Protocol Ibuprofen (Motrin Bulk Bottle) 600 mg PO Q6H PRN PRN Reason: Pain Witch Melissa (Tucks) 1 pad TOP ASDIRECTED ONE Stop: 03/12/20 23:58 Discontinued Medications Lactated Ringer's (Ringers, Lactated) 1,000 mls @ 999 mls/hr IV ASDIRECTED MAICOL Stop: 03/12/20 23:00 Last Admin: 03/12/20 22:04 Dose: 999 mls/hr Penicillin G Potassium 5 (millunits/ Sodium Chloride) 50 mls @ 100 mls/hr IV ONETIME ONE Stop: 03/12/20 22:48 Last Admin: 03/12/20 22:32 Dose: 100 mls/hr Premix (Premix Bag) Confirm Administered Dose 1 mls @ as directed .ROUTE .STK- MED ONE Stop: 03/12/20 22:28 Last Admin: 03/12/20 23:22 Dose: Not Given Sodium Chloride (Normal Saline) Confirm Administered Dose 50 mls @ as directed .ROUTE .STK-MED ONE Stop: 03/12/20 22:28 Last Admin: 03/12/20 23:22 Dose: Not Given Oxytocin/Sodium Chloride (Pitocin In Ns 20 Units/1,000 Ml) Confirm Administered Dose 20 unit in 1,000 mls @ as directed .ROUTE .STK-MED ONE Stop: 03/12/20 22:38 Last Admin: 03/12/20 23:52 Dose: Not Given Lidocaine HCl (Xylocaine 1%) Confirm Administered Dose 50 ml .ROUTE .STK-MED ONE Stop: 03/12/20 23:04 Last Admin: 03/12/20 23:52 Dose: Not Given Lidocaine HCl (Xylocaine 1%) 50 ml INJECT ONETIME ONE Stop: 03/12/20 23:51 Nifedipine (Procardia) 20 mg PO ONETIME ONE Stop: 03/12/20 21:45 Last Admin: 03/12/20 22:00 Dose: 20 mg Nifedipine (Procardia) 20 mg PO ONETIME ONE Stop: 03/12/20 22:16 Last Admin: 03/12/20 23:21 Dose: Not Given - Exam General: Alert HEENT: Pupils Equal Neck: Supple Lungs: Clear to Auscultation, Normal Respiratory Effort Cardiovascular: Regular Rate GI/Abdominal Exam: Normal Bowel Sounds (Female) Exam: Normal External Exam, Normal Speculum Exam Back Exam: Normal Inspection Extremities: No Pedal Edema, Normal Capillary Refill Skin: Warm Wound/Incisions: Healing Well Neurological: No New Focal Deficit Psy/Mental Status: Alert, Normal Affect, Normal Mood - Problem List & Annotations (1) SNOMED Code(s): 03323009 Code(s): Z34.90 - ENCNTR FOR SUPRVSN OF NORMAL , UNSP, UNSP TRIMESTER Status: Acute Current Visit: Yes Qualifiers: Weeks of gestation: 35 weeks Qualified Code(s): Z3A.35 - 35 weeks gestation of (2) Tobacco dependence due to cigarettes SNOMED Code(s): 18677733158812154 Code(s): F17.210 - NICOTINE DEPENDENCE, CIGARETTES, UNCOMPLICATED Status: Acute Current Visit: Yes (3) labor in third trimester SNOMED Code(s): 0597300 Code(s): O60.03 - LABOR WITHOUT DELIVERY, THIRD TRIMESTER Status: Acute Current Visit: Yes Qualifiers: Fetus number: single or unspecified fetus (4) delivery SNOMED Code(s): 921998263, 955652112 Code(s): O60.10X0 - LABOR W DELIVERY, UNSP TRIMESTER, UNSP Status: Acute Current Visit: Yes (5) infant, 2,500 or more grams SNOMED Code(s): 836809275, 624648782, 973727797, 432077496 Code(s): P07.30 - , UNSPECIFIED WEEKS OF GESTATION Status: Acute Current Visit: Yes (6) Vaginal tear resulting from childbirth SNOMED Code(s): 435437378 Code(s): O71.4 - OBSTETRIC HIGH VAGINAL LACERATION ALONE Status: Acute Current Visit: Yes - Problem List Review Problem List Initiated/Reviewed/Updated: Yes - My Orders Last 24 Hours: My Active Orders 03/12/20 21:45 OB Check [OM.PC] Click to Edit 03/12/20 23:45 Oxytocin/Normal Saline [Pitocin in NS 20 Units/1,000 ML] 20 unit in 1,000 ml IV BOLUS 03/12/20 23:57 Patient Status [ADT] Routine Up ad Keysha [RC] ASDIRECTED Vital Signs [RC] PFP Benzocaine [Sfsc-Y-Symayeb 20% [place]] See Dose Instructions TOP Q4H ONE Hydrocortisone [Proctozone-HC 2.5% Crm] 1 gm TOP ASDIRECTED PRN witch Melissa [Tucks] 1 pad TOP ASDIRECTED ONE Assess Lochia [WOMSER] Per Unit Routine Assess Uterine Involution [WOMSER] Per Unit Routine DVT/VTE Prophylaxis Reflex [OM.PC] Routine Resuscitation Status Routine 03/12/20 23:58 Antiembolic Devices [RC] .Routine VTE/DVT Education [RC] Click to Edit Ice Therapy [OM.PC] Per Unit Routine Perineal Care [OM.PC] Per Unit Routine Peripheral IV Discontinue [OM.PC] Routine Sitz Bath [OM.PC] Per Unit Routine 03/13/20 00:00 Acetaminophen [Tylenol Bulk Bottle] See Dose Instructions PO Q4H PRN Ibuprofen [Motrin Bulk Bottle] 600 mg PO Q6H PRN 03/13/20 05:11 CBC W/O DIFF,HEMOGRAM [HEME] AM 03/13/20 Breakfast Regular Diet [DIET] - Assessment Assessment:: 03/12/20 35 week IUP with contractions Plan: cover GBS, for unknown status and past positive IV fluids Oral Nifedipine 20 mg and repeat in 30 minutes. monitor for cervical change 03/12/20 delivery at 35 weeks with thick meconium second degree repair perineum. 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 cbc before discharge
[2020-03-13] MEDS ORDERED: cefTRIAXone 2 GM in Sodium Chloride 0.9% 50 ML IV ONE (08:00)
--- NOTE | 2020-03-13 08:25 | PCM.PNPP ---
- General Info Date of Service: 03/13/20 Functional Status: Reports: Pain Controlled - Review of Systems General: Reports: No Symptoms HEENT: Reports: No Symptoms Pulmonary: Reports: No Symptoms Cardiovascular: Reports: No Symptoms Gastrointestinal: Reports: No Symptoms Genitourinary: Reports: No Symptoms Musculoskeletal: Reports: No Symptoms Skin: Reports: No Symptoms Neurological: Reports: No Symptoms Psychiatric: Reports: No Symptoms - General Info Date of Service: 03/13/20 - Patient Data Vital Signs - Most Recent: Last Vital Signs Temp 36.5 C 03/13/20 03:59 Pulse 96 03/13/20 03:59 Resp 18 03/13/20 03:59 BP 93/55 L 03/13/20 03:59 Pulse Ox 98 03/13/20 03:59 Weight - Most Recent: 89.811 kg I&O - Last 24 Hours: Intake & Output 03/12/20 03/13/20 03/13/20 22:59 06:59 14:59 Intake Total 1000 Balance 1000 Lab Results - Last 24 Hours: Laboratory Results - last 24 hr 03/12/20 03/12/20 03/13/20 Range/Units 22:18 22:18 05:40 WBC 20.5 H 22.8 H (4.5-11.0) K/uL RBC 3.62 3.50 (3.30-5.50) M/uL Hgb 11.0 L 10.3 L (12.0-15.0) g/dL Hct 33.2 L 32.0 L (36.0-48.0) % MCV 92 91 (80-98) fL MCH 30 29 (27-31) pg MCHC 33 32 (32-36) % Plt Count 320 362 (150-400) K/uL Sodium 135 L (140-148) mmol/L Potassium 4.0 (3.6-5.2) mmol/L Chloride 101 (100-108) mmol/L Carbon Dioxide 21 (21-32) mmol/L Anion Gap 17.0 H (5.0-14.0) mmol/L BUN 9 (7-18) mg/dL Creatinine 0.6 (0.6-1.0) mg/dL Est Cr Clr Drug Dosing 124.67 mL/min Estimated GFR (MDRD) > 60 (>60) Glucose 86 (74-106) mg/dL Calcium 8.7 (8.5-10.1) mg/dL Total Bilirubin 0.2 (0.2-1.0) mg/dL AST 12 L (15-37) U/L ALT 20 (12-78) U/L Alkaline Phosphatase 96 (46-116) U/L Total Protein 6.9 (6.4-8.2) g/dL Albumin 2.7 L (3.4-5.0) g/dL Globulin 4.2 H (2.3-3.5) g/dL Albumin/Globulin Ratio 0.6 L (1.2-2.2) Med Orders - Current: Current Medications Acetaminophen (Tylenol Bulk Bottle) 0 mg PO Q4H PRN PRN Reason: Pain Last Admin: 03/13/20 01:30 Dose: 1 bottle Hydrocortisone (Proctozone-Hc 2.5% Crm) 1 gm TOP ASDIRECTED PRN PRN Reason: Itching Oxytocin/Sodium Chloride (Pitocin In Ns 20 Units/1,000 Ml) 20 unit in 1,000 mls @ 999 mls/hr IV BOLUS MAICOL; Protocol Last Admin: 03/12/20 23:05 Dose: 999 mls/hr, 999 mls/hr Ceftriaxone Sodium 2 gm/ (Sodium Chloride) 50 mls @ 100 mls/hr IV ONETIME ONE Stop: 03/13/20 08:29 Ibuprofen (Motrin Bulk Bottle) 600 mg PO Q6H PRN PRN Reason: Pain Last Admin: 03/13/20 01:30 Dose: 1 bottle Discontinued Medications Benzocaine (Lcly-I-Coubbkr 20% Newell) 0 gm TOP Q4H ONE Stop: 03/12/20 23:58 Last Admin: 03/13/20 01:29 Dose: 56 applic Lactated Ringer's (Ringers, Lactated) 1,000 mls @ 999 mls/hr IV ASDIRECTED MAICOL Stop: 03/12/20 23:00 Last Admin: 03/12/20 22:04 Dose: 999 mls/hr Penicillin G Potassium 5 (millunits/ Sodium Chloride) 50 mls @ 100 mls/hr IV ONETIME ONE Stop: 03/12/20 22:48 Last Admin: 03/12/20 22:32 Dose: 100 mls/hr Premix (Premix Bag) Confirm Administered Dose 1 mls @ as directed .ROUTE .STK- MED ONE Stop: 03/12/20 22:28 Last Admin: 03/12/20 23:22 Dose: Not Given Sodium Chloride (Normal Saline) Confirm Administered Dose 50 mls @ as directed .ROUTE .STK-MED ONE Stop: 03/12/20 22:28 Last Admin: 03/12/20 23:22 Dose: Not Given Oxytocin/Sodium Chloride (Pitocin In Ns 20 Units/1,000 Ml) Confirm Administered Dose 20 unit in 1,000 mls @ as directed .ROUTE .STK-MED ONE Stop: 03/12/20 22:38 Last Admin: 03/12/20 23:52 Dose: Not Given Lidocaine HCl (Xylocaine 1%) Confirm Administered Dose 50 ml .ROUTE .STK-MED ONE Stop: 03/12/20 23:04 Last Admin: 03/12/20 23:52 Dose: Not Given Lidocaine HCl (Xylocaine 1%) 50 ml INJECT ONETIME ONE Stop: 03/12/20 23:51 Last Admin: 03/12/20 23:00 Dose: 50 ml Nifedipine (Procardia) 20 mg PO ONETIME ONE Stop: 03/12/20 21:45 Last Admin: 03/12/20 22:00 Dose: 20 mg Nifedipine (Procardia) 20 mg PO ONETIME ONE Stop: 03/12/20 22:16 Last Admin: 03/12/20 23:21 Dose: Not Given Witch Melissa (Tucks) 1 pad TOP ASDIRECTED ONE Stop: 03/12/20 23:58 Last Admin: 03/13/20 01:29 Dose: 1 pad - Interaction Infant Disposition, : [facility] Interaction: Not Applicable Feeding: Other (see below) (pumping) Support Person: Significant Other - Recovery Exam Fundal Tone: Firm Fundal Level: At Umbilicus Fundal Placement: Midline Lochia Amount: Moderate Lochia Color: Rubra/Red Perineum Description: Intact, Minimal Bruising/Swelling Episiotomy/Laceration: Approximated Bladder Status: Nonpalpable, Voiding Urinary Elimination: Voided - Exam General: Alert, Oriented HEENT: Pupils Equal Neck: Supple Lungs: Clear to Auscultation, Normal Respiratory Effort Cardiovascular: Regular Rate, Regular Rhythm GI/Abdominal Exam: Normal Bowel Sounds, Soft, Non-Tender, No Organomegaly, No Distention, No Abnormal Bruit, No Mass, Pelvis Stable Extremities: Normal Inspection, Normal Range of Motion, Non-Tender, No Pedal Edema, Normal Capillary Refill Skin: Warm, Dry, Intact Wound/Incisions: Healing Well Neurological: No New Focal Deficit Psy/Mental Status: Alert, Normal Affect, Normal Mood - Problem List & Annotations (1) SNOMED Code(s): 95692931 Code(s): Z34.90 - ENCNTR FOR SUPRVSN OF NORMAL , UNSP, UNSP TRIMESTER Status: Acute Current Visit: Yes Qualifiers: Weeks of gestation: 35 weeks Qualified Code(s): Z3A.35 - 35 weeks gestation of (2) delivery SNOMED Code(s): 468617779, 045463006 Code(s): O60.10X0 - LABOR W DELIVERY, UNSP TRIMESTER, UNSP Status: Acute Current Visit: Yes (3) infant, 2,500 or more grams SNOMED Code(s): 154941247, 875175984, 148973523, 866387888 Code(s): P07.30 - , UNSPECIFIED WEEKS OF GESTATION Status: Acute Current Visit: Yes (4) labor in third trimester SNOMED Code(s): 5688956 Code(s): O60.03 - LABOR WITHOUT DELIVERY, THIRD TRIMESTER Status: Acute Current Visit: Yes Qualifiers: Fetus number: single or unspecified fetus (5) Tobacco dependence due to cigarettes SNOMED Code(s): 53483502043281376 Code(s): F17.210 - NICOTINE DEPENDENCE, CIGARETTES, UNCOMPLICATED Status: Acute Current Visit: Yes (6) Vaginal tear resulting from childbirth SNOMED Code(s): 201845223 Code(s): O71.4 - OBSTETRIC HIGH VAGINAL LACERATION ALONE Status: Acute Current Visit: Yes - Problem List Review Problem List Initiated/Reviewed/Updated: Yes - My Orders Last 24 Hours: My Active Orders 03/13/20 08:00 cefTRIAXone [Rocephin] 2 gm Sodium Chloride 0.9% [Normal Saline] 50 ml IV ONETIME - Assessment Assessment:: 03/12/20 35 week IUP with contractions Plan: cover GBS, for unknown status and past positive IV fluids Oral Nifedipine 20 mg and repeat in 30 minutes. monitor for cervical change 03/12/20 delivery at 35 weeks with thick meconium second degree repair perineum. 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 cbc before discharge 03/13/20 Discharge this am so she can go to NICU 2 g Rocephin IV this am, oral antibiotics for home 6 week check Discussed s/s of infection and warning signs
[2020-03-13 08:27] VITALS: BP 109/65; PULSE 73
[2020-03-13] MEDS ORDERED: Lanolin 100% Cream 40 GM Tube TOP PRN (08:59)
== END 2020-03-13 10:59 | disposition home or self-care (01) | DRG 807 ==
LOC: JP.OBCHECK 20:52 → JP.OB 22:38 → OBSVTOIN 23:00 → JP.MS 03-13 01:39
PROVIDERS: ADMIT Nurse Practitioner Family; ATTEND Nurse Practitioner Family
PROC: 10E0XZZ Delivery of Products of Conception, External Approach (ICD-10-PCS; principal; 2020-03-12)
PROC: 0KQM0ZZ Repair Perineum Muscle, Open Approach (ICD-10-PCS; 2020-03-12)
DX: O99.334 Smoking (tobacco) complicating childbirth (principal); Z37.0 Single live birth; F17.210 Nicotine dependence, cigarettes, uncomplicated; Z3A.35 35 weeks gestation of pregnancy; O60.14X0 Preterm labor third trimester with preterm delivery third trimester, not applicable or unspecified; O70.1 Second degree perineal laceration during delivery; O77.0 Labor and delivery complicated by meconium in amniotic fluid
CPT/HCPCS: 36415; 59409; 80053; 85027; 88307; 99211; A9270-GY; J0696; J2001; J2540; J2590; J7050; J7120

== ENCOUNTER 2021-07-22 16:59 | Emergency (ER) | payer MEDICAID ==
[2021-07-22 17:23] VITALS: BP 120/76; PULSE 88
--- NOTE | 2021-07-22 17:48 | EDM.PDOC ---
ED HPI GENERAL MEDICAL PROBLEM - General Chief Complaint: Lower Extremity Injury/Pain Stated Complaint: RIGHT ANKLE PAIN Time Seen by Provider: 07/22/21 17:30 Source of Information: Reports: Patient History Limitations: Reports: No Limitations - History of Present Illness INITIAL COMMENTS - FREE TEXT/NARRATIVE: 25-year-old female stepped awkwardly in a hole her on a rock last evening inverting her right ankle. Today she has significant swelling, pain, some ecchymosis developing over the lateral aspect of the ankle. She could not bear weight so came in to be checked. No other injury. Onset: Sudden Duration: Hour(s): (Just under 12 hours ago) Location: Reports: Lower Extremity, Right Quality: Reports: Sharp, Stabbing Worsens with: Reports: Other (Weightbearing is painful), Movement Associated Symptoms: Reports: No Other Symptoms Right Ankle Pain Score (Numeric/FACES): 10 - Related Data Allergies Allergy/AdvReac Type Severity Reaction Status Date / Time No Known Allergies Allergy Verified 07/22/21 17:23 Home Meds: Home Meds NK [No Known Home Meds] 07/22/21 [History] Past Medical History HEENT History: Reports: None Cardiovascular History: Reports: None Respiratory History: Reports: None Gastrointestinal History: Reports: None Genitourinary History: Reports: None PURCHASING INTERN History: Reports: Musculoskeletal History: Reports: None Neurological History: Reports: None Psychiatric History: Reports: Anxiety Endocrine/Metabolic History: Reports: None Hematologic History: Reports: None Immunologic History: Reports: None Oncologic (Cancer) History: Reports: None Dermatologic History: Reports: None - Infectious Disease History Infectious Disease History: Reports: None - Past Surgical History Head Surgeries/Procedures: Reports: None HEENT Surgical History: Reports: Eye Surgery Cardiovascular Surgical History: Reports: None Respiratory Surgical History: Reports: None GI Surgical History: Reports: None Female Surgical History: Reports: None Endocrine Surgical History: Reports: None Neurological Surgical History: Reports: None Musculoskeletal Surgical History: Reports: None Social & Family History - Family History Family Medical History: No Pertinent Family History - Caffeine Use Caffeine Use: Reports: Coffee, Soda, Tea Other Caffeine Use: occational - Recreational Drug Use Recreational Drug Use: No Review of Systems - Review of Systems Review Of Systems: See Below Constitutional: Denies: Fever Mouth/Throat: Reports: No Symptoms Respiratory: Reports: No Symptoms Cardiovascular: Reports: No Symptoms GI/Abdominal: Reports: No Symptoms Skin: Reports: Bruising (Slight bruising is developed over the lateral right ankle) Neurological: Denies: Paresthesia ED EXAM, GENERAL - Physical Exam Exam: See Below Exam Limited By: No Limitations General Appearance: Alert, No Apparent Distress (Looks uncomfortable but not distressed) Head: Atraumatic Neck: Non-Tender Respiratory/Chest: No Respiratory Distress Extremities: Other (Exam is otherwise limited to the lower extremities. She has no palpation tenderness or pain with movement of the right hip or knee. No proximal tib-fib tenderness to palpation. She has swelling and extreme tenderness to even light palpation over the lateral ankle. No crepitus.) Neurological: Alert, Oriented Course - Vital Signs Last Recorded V/S: Last Vital Signs Temp 98.8 F 07/22/21 17:21 Pulse 88 07/22/21 17:21 Resp 16 07/22/21 17:21 BP 120/76 07/22/21 17:21 Pulse Ox 98 07/22/21 17:21 - Orders/Labs/Meds Orders: Active Orders 24 hr Category Date Time Status Ankle Min 3V Rt [CR] Stat Exams 07/22/21 17:29 Taken DME for Discharge [COMM] Stat Oth 07/22/21 18:01 Ordered - Re-Assessments/Exams Free Text/Narrative Re-Assessment/Exam: 07/22/21 17:48 A right ankle x-ray was obtained. 07/22/21 18:05 X-ray is negative for fracture, 3 inch Cj wrap was applied to the ankle and she was fitted with crutches. Increase activity as tolerated, elevate and wrap ankle when able and ibuprofen for pain. Recheck in 7 to 10 days if not improving satisfactorily. Departure - Departure Time of Disposition: 18:17 Disposition: Home, Self-Care 01 Clinical Impression: Sprain of right ankle Qualifiers: Encounter type: initial encounter Involved ligament of ankle: anterior talofibular ligament Qualified Code(s): S93.491A - Sprain of other ligament of right ankle, initial encounter - Discharge Information Instructions: Ankle Sprain, [id number] Referrals: Shanna Warren CNM [Primary Care Provider] - Forms: ED Department Discharge Care Plan Goals: Wrap ankle and elevate when able to reduce swelling. Use crutches initially and increase activity as tolerated. Consider rechecking in 1 week if not improving satisfactorily. Sepsis Event Note (ED) - Focused Exam Vital Signs: Vital Signs Temp Pulse Resp BP Pulse Ox 07/22/21 17:21 98.8 F 88 16 120/76 98 - My Orders Last 24 Hours: My Active Orders 07/22/21 17:29 Ankle Min 3V Rt [CR] Stat 07/22/21 18:01 DME for Discharge [COMM] Stat - Assessment/Plan Last 24 Hours: My Active Orders 07/22/21 17:29 Ankle Min 3V Rt [CR] Stat 07/22/21 18:01 DME for Discharge [COMM] Stat
--- NOTE | 2021-07-23 09:25 | CR ---
Ankle Min 3V Rt CLINICAL HISTORY: Injury FINDINGS: The soft tissues are swollen over the lateral aspect. No acute fracture or dislocation is noted. Ankle mortise is intact. Articular surfaces are smooth Impression: Lateral soft tissue swelling No fracture or dislocation
== END 2021-07-22 18:17 | disposition home or self-care (01) ==
LOC: JP.ED 16:59
DX: S93.491A Sprain of other ligament of right ankle, initial encounter (principal); X50.1XXA Overexertion from prolonged static or awkward postures, initial encounter
CPT/HCPCS: 73610-26-RT; 73610-RT; 99283-25